=== PATIENT | female | born 1935 | race Caucasian/White ===

== ENCOUNTER 2017-04-23 12:15 | Emergency (ER) | payer MEDICARE ==
[~2017-04-23] VITALS: Ht 170.2 cm; Wt 52.0 kg
[~2017-04-23 12:15] MED LIST: ASPI81TA81; ATOR20TA15 PO; BACT800T5 PO; CLOP75TA PO; COMB0.2S EACH EYE; FISH1000; IRON18TA2 PO; LANS30CA PO; MEMA21CA PO; MULT1TAB84 PO; SYNT88TA PO; VALS1TAB64 PO
[2017-04-23 12:25] VITALS: BP 96/47; PULSE 57; RESP 18; TEMP 96; O2SAT 97
[2017-04-23] MEDS ORDERED: MULTTAB67 PO (12:53)
[2017-04-23] MEDS ORDERED: FERR324T8 PO (12:53)
[2017-04-23] MEDS ORDERED: METO-426 PO (12:53)
[2017-04-23] MEDS ORDERED: LEVO.1 PO (12:53)
[2017-04-23] MEDS ORDERED: NAME10TA PO (12:53)
--- NOTE | 2017-04-23 13:00 | PD ---
HPI Chief Complaint: General Weakness Time Seen by Provider: 12:36 Travel History International Travel<30 days: No Contact w/Intl Traveler<30days: No Traveled to known affect area: No History of Present Illness HPI 81yo F with PMH of alzheimer's disease was brought in today because he noticed that she seemed more fatigue this week. Also noticed more coughing. Pt states she feels dizzy at times but not right now. Denies any fever, chest pain, sob, n/v, abdominal pain, focal weakness or numbness. Pt follows with Dr. Mesa. Denies any fall. PFSH Past Medical History Hx Anticoagulant Therapy: Yes Alzheimer's Disease: Yes Cancer: No Cardiovascular Problems: Yes High Cholesterol: Yes Cerebrovascular Accident: Yes Coronary Artery Disease: Yes Diabetes: No Diminished Hearing: No Endocrine: No Gastrointestinal Disorders: Yes GERD: Yes Genitourinary: Yes Hepatitis: No Hiatal Hernia: Yes Hypertension: Yes Immune Disorder: No Medical other: Yes (LOWER BACK PAIN) Musculoskeletal: Yes (ARTHRITIS) Neurologic: No Psychiatric: No Reproductive: No Respiratory: No Immunizations Current: Yes Thyroid Disease: Yes Tetanus Vaccination: > 5 Years Influenza Vaccination: Yes ?: Not Menopausal: Yes Past Surgical History Abdominal Surgery: Yes (APPENDECTOMY, GALLBLADDER REMOVED) AICD: No Appendectomy: Yes (AGE 8) Cardiac Surgery: Yes (OPEN HEART) Cholecystectomy: Yes Coronary Artery Bypass Graft: Yes (X5) Ear Surgery: No Endocrine Surgery: No Eye Surgery: Yes (CATARACTS REMOVED) Genitourinary Surgery: No Gynecologic Surgery: No Joint Replacement: No Oral Surgery: No Pacemaker: No Thoracic Surgery: Yes Other Surgery: Yes (THYROID) Social History Alcohol Use: No Tobacco Use: No Substance Use: No Allergies-Medications (Allergen,Severity, Reaction): Coded Allergies: No Known Allergies (Unverified , 04/23/17) Reported Meds & Prescriptions Reported Meds & Active Scripts Active Reported Synthroid (Levothyroxine Sodium) 100 Mcg Tab 100 Mcg PO DAILY Metoprolol Tartrate 75 Mg Tab 80 Mg PO BID Ferrous Fumarate 324 Mg Tab 65 Mg PO DAILY Multiple Vitamin 1 Tab 1 Tab PO DAILY Namenda (Memantine) 10 Mg Tab 10 Mg PO DAILY Atorvastatin (Atorvastatin Calcium) 20 Mg Tab 20 Mg PO HS Aspir-81 (Aspirin) 81 Mg Tabdr Valsartan 80 Mg Tab 80 Mg PO DAILY Clopidogrel (Clopidogrel Bisulfate) 75 Mg Tab 75 Mg PO DAILY Lansoprazole 30 Mg Capdr 30 Mg PO DAILY Fish Oil ([place]-3 Fatty Acids) 1,000 Mg Cap Combigan Opth Drops (Brimonidine-Timolol Opth Drops) 0.2-0.5% Soln 1 Drop EACH EYE Q12HR Review of Systems Except as stated in HPI: all other systems reviewed are Neg Physical Exam Narrative GENERAL: 81yo F not in distress. SKIN: Focused skin assessment warm/dry. HEAD: Atraumatic. Normocephalic. EYES: Pupils equal and round at 3mm bilaterally. EOMI. No scleral icterus. No injection or drainage. ENT: No nasal bleeding or discharge. Mucous membranes pink and moist. NECK: Trachea midline. No JVD. CARDIOVASCULAR: Regular rate and rhythm. No murmur appreciated. RESPIRATORY: No accessory muscle use. Clear to auscultation. Breath sounds equal bilaterally. GASTROINTESTINAL: Abdomen soft, non-tender, nondistended. No rebound tenderness or guarding. MUSCULOSKELETAL: No obvious deformities. No clubbing. No cyanosis. No edema. NEUROLOGICAL: Awake and alert. No obvious cranial nerve deficits. Motor grossly within normal limits. Normal speech. AAOx1, baseline mental status. Data Data Last Documented VS Vital Signs Date Time Temp Pulse Resp B/P Pulse Ox O2 Delivery O2 Flow Rate FiO2 04/23/17 14:29 54 16 153/63 93 Room Air 04/23/17 12:25 96.0 Orders Complete Blood Count With Diff (04/23/17 12:56) Comprehensive Metabolic Panel (04/23/17 12:56) Troponin I (04/23/17 12:56) Electrocardiogram (04/23/17 ) Chest, Single Ap (04/23/17 ) Urinalysis - C+S If Indicated (04/23/17 12:56) Benefits Counselor / Telemetry AMEE.Q8H (04/23/17 12:56) Cath For Specimen (04/23/17 14:18) Sodium Chlorid 0.9% 500 Ml Inj (Ns 500 M (04/23/17 14:30) Labs Laboratory Tests Test 04/23/17 13:00 White Blood Count 7.1 TH/MM3 Red Blood Count 3.20 MIL/MM3 Hemoglobin 9.8 GM/DL Hematocrit 29.9 % Mean Corpuscular Volume 93.5 FL Mean Corpuscular Hemoglobin 30.5 PG Mean Corpuscular Hemoglobin 32.6 % Concent Red Cell Distribution Width 12.5 % Platelet Count 203 TH/MM3 Mean Platelet Volume 8.3 FL Neutrophils (%) (Auto) 41.8 % Lymphocytes (%) (Auto) 45.3 % Monocytes (%) (Auto) 8.3 % Eosinophils (%) (Auto) 3.6 % Basophils (%) (Auto) 1.0 % Neutrophils # (Auto) 3.0 TH/MM3 Lymphocytes # (Auto) 3.1 TH/MM3 Monocytes # (Auto) 0.6 TH/MM3 Eosinophils # (Auto) 0.3 TH/MM3 Basophils # (Auto) 0.1 TH/MM3 CBC Comment DIFF FINAL Differential Comment Sodium Level 143 MEQ/L Potassium Level 5.0 MEQ/L Chloride Level 112 MEQ/L Carbon Dioxide Level 24.2 MEQ/L Anion Gap 7 MEQ/L Blood Urea Nitrogen 47 MG/DL Creatinine 2.10 MG/DL Estimat Glomerular Filtration 22 ML/MIN Rate Random Glucose 101 MG/DL Calcium Level 8.2 MG/DL Total Bilirubin 0.4 MG/DL Aspartate Amino Transf 20 U/L (AST/SGOT) Alanine Aminotransferase 17 U/L (ALT/SGPT) Alkaline Phosphatase 52 U/L Troponin I LESS THAN 0.02 NG/ML Total Protein 7.7 GM/DL Albumin 3.3 GM/DL [facility] Medical Decision Making Medical Screen Exam Complete: Yes Emergency Medical Condition: Yes Interpretation(s) EKG: Sinus bradycardia at 51bpm. Normal axis. 1st AV block. Mild ST depression. Differential Diagnosis Progressive dementia vs. UTI vs. dehydration vs. electrolyte abnormality vs. failure to thrive Narrative Course 81yo F with alzhiemers dementia brought here by because he was concern she may have pneumonia since she is coughing and also concern because she appears to get fatigue easier than normal. Pt is a thin, elderly female who is well appearing and has no complaint of chest pain, sob, or abdominal pain. Pt has no nausea, vomiting and tolerating PO. Labs reviewed, no leukocytosis. H/ H low at 9.8/29.9 but is only mildly decreased from 10.3/31.0. BUN/creatinine is mildly elevated at 47/2.10. This is only slightly increased from prior as well. CXR showed no acute pulmonary disease. I discussed case with pt's PMD Dr. Mesa who knows her well and agreed that pt can follow up with him as outpatient. Pt already has appointment next week. He asked that we fax over the CXR and lab work which I informed the charge nurse about. Straight cath was attempted for urine collection but unable to obtain specimen so pt was given water to rehydrate. Then pt urinated in the diaper. Pt has no abdominal pain or urinary complaints. Pt was also given NS 500cc IVF. At this point, do not feel that we need to cath pt again and they understand that I cant check if there is urine infection if we did not send the urine. Pt is well appearing. Return precautions given. Diagnosis Primary Impression: Fatigue Qualified Code: R53.82 - Chronic fatigue Patient Instructions: General Instructions Departure Forms: Tests/Procedures Additional Instructions: Please follow up with Dr. Mesa as outpatient. Return to the ED if symptoms worsen. Med/Other Pt SpecificInfo: No Change to Meds Disposition: 01 DISCHARGE HOME Condition: Stable JuarezMaci jeffersonto LEWIS Apr 23, 2017 13:00
[2017-04-23 13:12] LABS: BASOPHIL # 0.1 TH/MM3 (0-0.2); EOSINOPHIL # 0.3 TH/MM3 (0-0.4); EOSINOPHIL % 3.6 % (0.0-4.0); HEMATOCRIT 29.9 % (35.0-46.0); HEMO FLAGS DIFF FINAL; LYMPH % 45.3 % (9.0-44.0); LYMPHOCYTE # 3.1 TH/MM3 (1.0-4.8); MEAN CELL VOLUME 93.5 FL (80.0-100.0); MEAN CORPUSCULAR HEMOGLOBIN 30.5 PG (27.0-34.0); MEAN CORPUSCULAR HGB CONC 32.6 % (32.0-36.0); MONO % 8.3 % (0.0-8.0); NEUT % 41.8 % (16.0-70.0); PLATELET COUNT 203 TH/MM3 (150-450); RED CELL DISTRIBUTION WIDTH 12.5 % (11.6-17.2); WHITE BLOOD COUNT 7.1 TH/MM3 (4.0-11.0)
[2017-04-23 13:22] LABS: CHLORIDE 112 MEQ/L (98-107); SODIUM (NA) 143 MEQ/L (136-145)
[2017-04-23 13:25] LABS: ANION GAP 7 MEQ/L (5-15); BICARBONATE 24.2 MEQ/L (21.0-32.0); BLOOD UREA NITROGEN 47 MG/DL (7-18)
[2017-04-23 13:28] LABS: ALT (GPT) 17 U/L (10-53)
[2017-04-23 13:29] LABS: AST (GOT) 20 U/L (15-37); GLOMERULAR FILTRATION RATE 22 ML/MIN (>89)
[2017-04-23 13:30] LABS: TOTAL BILIRUBIN ADULT 0.4 MG/DL (0.2-1.0)
[2017-04-23 13:31] LABS: ALKALINE PHOSPHATASE 52 U/L (45-117)
--- NOTE | 2017-04-23 13:54 | RADRPT ---
EXAM DATE/TIME: 04/23/2017 13:29 [place] COMPARISON: No previous studies available for comparison. INDICATIONS : Weakness MEDICAL HISTORY : Cardiovascular disease SURGICAL HISTORY : CABG. ENCOUNTER: Initial ACUITY: 1 day PAIN SCORE: 2/10 LOCATION: Bilateral chest FINDINGS: Median sternotomy wires are noted status post cardiac surgery. The heart is normal. The pulmonary v ascular pattern is normal. The lungs are clear. CONCLUSION: No acute cardiopulmonary disease.. Dick Cazares MD on April 23, 2017 at 13:43 Board Certified Radiologist. This report was verified electronically.
[2017-04-23 14:29] VITALS: BP 153/63; PULSE 54; RESP 16; O2SAT 93
[2017-04-23] MEDS ORDERED: SODIUM CHLORID 0.9% 500 ML INJ 500 ML IV ONE (14:30)
--- NOTE | 2017-04-23 16:15 | EKG ---
Date Performed: 04/23/2017 Time Performed: 13:09:26 PTAGE: 81 years EKG: SINUS BRADYCARDIA WITH FIRST DEGREE AV BLOCK Nonspecific ST and T wave abnormalities ABNORM AL ECG No significant change from prior electrocardiogram. PREVIOUS TRACING : 07/30/2016 15.20 DOCTOR: Ricki Harrison Interpretating Date/Time 04/23/2017 16:13:24
== END 2017-04-23 15:29 | disposition home or self-care (01) ==
LOC: PHED 12:15
DX: R53.82 Chronic fatigue, unspecified (principal); R00.1 Bradycardia, unspecified
CPT/HCPCS: 71010; 80053; 84484; 85025; 93005; 96360; 99285; J7040

== ENCOUNTER 2017-05-26 12:57 | Observation (INO) | payer MEDICARE ==
[2017-05-26] VITALS (8 sets, daily range): BP systolic 88–164; BP diastolic 51–84; PULSE 58–71; RESP 14–20; TEMP 95.9–97.4; O2SAT 92–98
[~2017-05-26] VITALS: Ht 167.6 cm; Wt 51.1 kg
[~2017-05-26 12:57] MED LIST changes: -BACT800T5 PO; +FERR324T8 PO; -IRON18TA2 PO; +LEVO.1 PO; -MEMA21CA PO; +METO-426 PO; -MULT1TAB84 PO; +MULTTAB67 PO; +NAME10TA PO; -SYNT88TA PO
[2017-05-26] MEDS ORDERED: SODIUM CHLOR 0.9% 1000 ML INJ 1,000 ML IV SCH (13:34)
--- NOTE | 2017-05-26 13:42 | PD ---
HPI Chief Complaint: General Weakness Time Seen by Provider: 13:12 Travel History International Travel<30 days: No Contact w/Intl Traveler<30days: No Traveled to known affect area: No History of Present Illness HPI The patient is a 81-year-old female who presents to the emergency department for generalized weakness. The patient does have a history of early onset dementia, lives with her up 61 years. The states over the last week the patient has had some increasing generalized weakness with decreased oral intake. The patient does have a history of increasing kidney function, stage IV kidney disease, and is scheduled for an outpatient ultrasound and follow-up with a liability claims representative. The states the patient has had increasing weakness over the last week, denies any fever, vomiting, diarrhea, or complaints of abdominal pain. The patient denies any chest pain or shortness of breath at rest, however, does note some lightheadedness and shortness of breath with exertion. The patient's symptoms are moderate, worse with activity, slightly alleviated at rest. The patient does have a history of chronic left lower extremity edema secondary to previous CABG and vein harvesting. The states there is no acute changes in the swelling of the left lower extremity. PFSH Past Medical History Hx Anticoagulant Therapy: Yes Alzheimer's Disease: Yes Cancer: No Cardiovascular Problems: Yes (CABG x5) High Cholesterol: Yes Cerebrovascular Accident: Yes Coronary Artery Disease: Yes Diabetes: No Diminished Hearing: No Endocrine: No Gastrointestinal Disorders: Yes GERD: Yes Genitourinary: Yes Hepatitis: No Hiatal Hernia: Yes Hypertension: Yes Immune Disorder: No Musculoskeletal: Yes (ARTHRITIS) Neurologic: No Psychiatric: No Reproductive: No Respiratory: No Immunizations Current: Yes Thyroid Disease: Yes ?: Not Menopausal: Yes Past Surgical History Abdominal Surgery: Yes (APPENDECTOMY, GALLBLADDER REMOVED) AICD: No Appendectomy: Yes (AGE 8) Cardiac Surgery: Yes (OPEN HEART) Cholecystectomy: Yes Coronary Artery Bypass Graft: Yes (X5) Ear Surgery: No Endocrine Surgery: No Eye Surgery: Yes (CATARACTS REMOVED) Genitourinary Surgery: No Gynecologic Surgery: No Joint Replacement: No Oral Surgery: No Pacemaker: No Thoracic Surgery: Yes Other Surgery: Yes (THYROID) Social History Alcohol Use: No Tobacco Use: No Substance Use: No Allergies-Medications (Allergen,Severity, Reaction): Coded Allergies: No Known Allergies (Unverified , 05/26/17) Reported Meds & Prescriptions Reported Meds & Active Scripts Active Reported Synthroid (Levothyroxine Sodium) 100 Mcg Tab 100 Mcg PO DAILY Metoprolol Tartrate 75 Mg Tab 80 Mg PO BID Ferrous Fumarate 324 Mg Tab 65 Mg PO DAILY Multiple Vitamin 1 Tab 1 Tab PO DAILY Namenda (Memantine) 10 Mg Tab 10 Mg PO DAILY Atorvastatin (Atorvastatin Calcium) 20 Mg Tab 20 Mg PO HS Aspir-81 (Aspirin) 81 Mg Tabdr Valsartan 80 Mg Tab 80 Mg PO DAILY Clopidogrel (Clopidogrel Bisulfate) 75 Mg Tab 75 Mg PO DAILY Lansoprazole 30 Mg Capdr 30 Mg PO DAILY Fish Oil ([place]-3 Fatty Acids) 1,000 Mg Cap Combigan Opth Drops (Brimonidine-Timolol Opth Drops) 0.2-0.5% Soln 1 Drop EACH EYE Q12HR Review of Systems Except as stated in HPI: all other systems reviewed are Neg General / Constitutional: No: Fever HENT: Positive: Lightheadedness Cardiovascular: Positive: Dyspnea on exertion, No: Chest Pain or Discomfort Respiratory: No: Shortness of Breath Gastrointestinal: Positive: Loss of Appetite, No: Nausea, Vomiting, Abdominal Pain Genitourinary: Positive: Other (stage IV kidney disease per the 's report), No: Dysuria Musculoskeletal: Positive: Weakness, Edema (chronic left lower extremity edema) Neurologic: Positive: Weakness Physical Exam Narrative GENERAL: Awake, alert, very pleasant 81-year-old female who appears her stated age and is in no acute respiratory distress. SKIN: Focused skin assessment warm/dry. Pale complexion. HEAD: Atraumatic. Normocephalic. EYES: Pupils equal and round. No scleral icterus. No injection or drainage. Pallor noted of the lower conjunctiva. ENT: No nasal bleeding or discharge. Slightly dry mucous membranes. NECK: Trachea midline. No JVD. CARDIOVASCULAR: Regular rate and rhythm. No murmur appreciated. Heart rate in the 60s. RESPIRATORY: No accessory muscle use. Clear to auscultation. Breath sounds equal bilaterally. GASTROINTESTINAL: Abdomen soft, non-tender, nondistended. Well-healed abdominal scar. No rebound tenderness. Rectal: The exam was performed in the presence of a female nurse. No gross blood, grossly guaiac positive. MUSCULOSKELETAL: No obvious deformities. No clubbing. No cyanosis. Left lower extremity edema with vein harvesting scar noted medial aspect. NEUROLOGICAL: Awake and alert. No obvious cranial nerve deficits. Motor grossly within normal limits. Normal speech. Follows commands. PSYCHIATRIC: Appropriate mood and affect; insight and judgment normal. Data Data Last Documented VS Vital Signs Date Time Temp Pulse Resp B/P (MAP) Pulse Ox O2 Delivery O2 Flow Rate FiO2 05/26/17 14:16 59 18 113/51 (71) 98 Room Air 2.00 05/26/17 13:08 97.4 Orders Orders Complete Blood Count With Diff (05/26/17 13:34) Comprehensive Metabolic Panel (05/26/17 13:34) Prothrombin Time / Inr (Pt) (05/26/17 13:34) Act Partial Throm Time (Ptt) (05/26/17 13:34) Urinalysis - C+S If Indicated (05/26/17 13:34) Type And Screen (05/26/17 13:34) Ecg Monitoring (05/26/17 13:34) Iv Access Insert/Monitor (05/26/17 13:34) Oximetry (05/26/17 13:34) Sodium Chlor 0.9% 1000 Ml Inj (Ns 1000 M (05/26/17 13:34) Sodium Chloride 0.9% Flush (Ns Flush) (05/26/17 13:45) Electrocardiogram (05/26/17 ) Creatine Kinase (Cpk) (05/26/17 13:34) Troponin I (05/26/17 13:34) Cath For Specimen (05/26/17 14:19) Urine Culture (05/26/17 14:25) Labs Laboratory Tests Test 05/26/17 13:40 05/26/17 14:25 White Blood Count 5.9 TH/MM3 Red Blood Count 3.03 MIL/MM3 Hemoglobin 9.3 GM/DL Hematocrit 28.1 % Mean Corpuscular Volume 92.5 FL Mean Corpuscular Hemoglobin 30.6 PG Mean Corpuscular Hemoglobin Concent 33.1 % Red Cell Distribution Width 12.7 % Platelet Count 257 TH/MM3 Mean Platelet Volume 7.6 FL Neutrophils (%) (Auto) 48.3 % Lymphocytes (%) (Auto) 36.4 % Monocytes (%) (Auto) 9.6 % Eosinophils (%) (Auto) 4.4 % Basophils (%) (Auto) 1.3 % Neutrophils # (Auto) 2.8 TH/MM3 Lymphocytes # (Auto) 2.1 TH/MM3 Monocytes # (Auto) 0.6 TH/MM3 Eosinophils # (Auto) 0.3 TH/MM3 Basophils # (Auto) 0.1 TH/MM3 CBC Comment DIFF FINAL Differential Comment Prothrombin Time 11.1 SEC Prothromb Time International Ratio 1.0 RATIO Activated Partial Thromboplast Time 21.5 SEC Blood Urea Nitrogen 30 MG/DL Creatinine 1.80 MG/DL Random Glucose 104 MG/DL Total Protein 7.2 GM/DL Albumin 3.1 GM/DL Calcium Level 8.2 MG/DL Alkaline Phosphatase 50 U/L Aspartate Amino Transf (AST/SGOT) 20 U/L Alanine Aminotransferase (ALT/SGPT) 14 U/L Total Bilirubin 0.3 MG/DL Sodium Level 140 MEQ/L Potassium Level 4.3 MEQ/L Chloride Level 109 MEQ/L Carbon Dioxide Level 25.3 MEQ/L Anion Gap 6 MEQ/L Estimat Glomerular Filtration Rate 27 ML/MIN Total Creatine Kinase 51 U/L Troponin I LESS THAN 0.02 NG/ML Urine Collection Type CATH Urine Color YELLOW Urine Turbidity MOD Urine pH 5.5 Urine Specific [place] 1.018 Urine Protein 30 mg/dL Urine Glucose (UA) NEG mg/dL Urine Ketones TRACE mg/dL Urine Occult Blood MOD Urine Nitrite POS Urine Bilirubin NEG Urine Leukocyte Esterase LARGE Urine RBC 15-19 /hpf Urine WBC INNUM /hpf Urine WBC Clumps MANY Urine Bacteria MANY /hpf Microscopic Urinalysis Comment CATH-CULTURE IND Urine Collection Time 14:25 MDM Medical Decision Making Medical Screen Exam Complete: Yes Emergency Medical Condition: Yes Medical Record Reviewed: Yes Interpretation(s) EKG reveals sinus bradycardia with a heart rate of 58. Borderline first-degree AV block. Nonspecific ST-T wave changes. Laboratory Tests Test 05/26/17 13:40 05/26/17 14:25 White Blood Count 5.9 TH/MM3 Red Blood Count 3.03 MIL/MM3 Hemoglobin 9.3 GM/DL Hematocrit 28.1 % Mean Corpuscular Volume 92.5 FL Mean Corpuscular Hemoglobin 30.6 PG Mean Corpuscular Hemoglobin Concent 33.1 % Red Cell Distribution Width 12.7 % Platelet Count 257 TH/MM3 Mean Platelet Volume 7.6 FL Neutrophils (%) (Auto) 48.3 % Lymphocytes (%) (Auto) 36.4 % Monocytes (%) (Auto) 9.6 % Eosinophils (%) (Auto) 4.4 % Basophils (%) (Auto) 1.3 % Neutrophils # (Auto) 2.8 TH/MM3 Lymphocytes # (Auto) 2.1 TH/MM3 Monocytes # (Auto) 0.6 TH/MM3 Eosinophils # (Auto) 0.3 TH/MM3 Basophils # (Auto) 0.1 TH/MM3 CBC Comment DIFF FINAL Differential Comment Prothrombin Time 11.1 SEC Prothromb Time International Ratio 1.0 RATIO Activated Partial Thromboplast Time 21.5 SEC Blood Urea Nitrogen 30 MG/DL Creatinine 1.80 MG/DL Random Glucose 104 MG/DL Total Protein 7.2 GM/DL Albumin 3.1 GM/DL Calcium Level 8.2 MG/DL Alkaline Phosphatase 50 U/L Aspartate Amino Transf (AST/SGOT) 20 U/L Alanine Aminotransferase (ALT/SGPT) 14 U/L Total Bilirubin 0.3 MG/DL Sodium Level 140 MEQ/L Potassium Level 4.3 MEQ/L Chloride Level 109 MEQ/L Carbon Dioxide Level 25.3 MEQ/L Anion Gap 6 MEQ/L Estimat Glomerular Filtration Rate 27 ML/MIN Total Creatine Kinase 51 U/L Troponin I LESS THAN 0.02 NG/ML Urine Collection Type CATH Urine Color YELLOW Urine Turbidity MOD Urine pH 5.5 Urine Specific [place] 1.018 Urine Protein 30 mg/dL Urine Glucose (UA) NEG mg/dL Urine Ketones TRACE mg/dL Urine Occult Blood MOD Urine Nitrite POS Urine Bilirubin NEG Urine Leukocyte Esterase LARGE Urine RBC 15-19 /hpf Urine WBC INNUM /hpf Urine WBC Clumps MANY Urine Bacteria MANY /hpf Microscopic Urinalysis Comment CATH-CULTURE IND Urine Collection Time 14:25 Differential Diagnosis Differential diagnosis includes symptomatic anemia, chronic kidney disease, dehydration, malnutrition, dementia, UTI, pneumonia, subdural hemorrhage, hyponatremia. Narrative Course IV was established, labs are drawn and sent, and the patient was placed on cardiac telemetry monitoring and continuous pulse oximetry monitoring. EKG was ordered and interpreted. Rectal exam reveals no gross blood but is grossly guaiac positive. Therefore, CBC and type and screen were sent to lab. Chest x- ray was obtained. UA was ordered. IV fluids were started. The patient's creatinine is 1.8. Hemoglobin is 9.3, however, patient appears dehydrated and hemoconcentrated. Catheter UA revealed no urine in the bladder, therefore, patient was administered an IV fluid bolus. The patient has a low hemoglobin, however, her physical examination reveals pallor to lower conjunctiva and pale complexion with positive rectal exam for guaiac positive stool. I believe the patient is hemoconcentrated with underlying acute kidney injury and dehydration. Therefore, patient will be 23 hour observation for rehydration and evaluation of her hemoglobin as well as the GI bleed. The patient's primary physician is Dr. Bolivar, therefore, [facility] were paged for 23 hour observation. After IV fluids patient's UA came back, consistent with UTI. Therefore, the patient was administered Rocephin 1 g intravenously. I discussed the patient with Dr. Rahman who agrees with 23 hour observation. [facility] Point of Care Internal Pos. & Neg. Controls: Passed Fecal Specimen Occult Blood: Positive Physician Communication Physician Communication [facility] were paged for 23 hour observation. I discussed the patient with Dr. Rahman who agrees with 23 hour observation. Diagnosis Primary Impression: GI bleed Qualified Codes: K92.2 - Gastrointestinal hemorrhage, unspecified Additional Impressions: Dehydration Chronic renal insufficiency Qualified Codes: N18.4 - Chronic kidney disease, stage 4 (severe) Anemia Qualified Codes: D64.9 - Anemia, unspecified UTI (urinary tract infection) Qualified Codes: N39.0 - Urinary tract infection, site not specified Admitting Information Admitting Physician Requests: Observation Condition: Stable Jose Styles MD May 26, 2017 13:42
[2017-05-26] MEDS ORDERED: SODIUM CHLORIDE 0.9% FLUSH 10 ML FLUSH IVF PRN (13:45)
[2017-05-26 13:52] LABS: AUTOMATED NEUTROPHIL # 2.8 TH/MM3 (1.8-7.7); BASOPHIL # 0.1 TH/MM3 (0-0.2); BASOPHIL % 1.3 % (0.0-2.0); EOSINOPHIL # 0.3 TH/MM3 (0-0.4); EOSINOPHIL % 4.4 % (0.0-4.0); HEMATOCRIT 28.1 % (35.0-46.0); HEMO FLAGS DIFF FINAL; LYMPH % 36.4 % (9.0-44.0); LYMPHOCYTE # 2.1 TH/MM3 (1.0-4.8); MEAN CELL VOLUME 92.5 FL (80.0-100.0); MEAN CORPUSCULAR HEMOGLOBIN 30.6 PG (27.0-34.0); MEAN CORPUSCULAR HGB CONC 33.1 % (32.0-36.0); MONO % 9.6 % (0.0-8.0); NEUT % 48.3 % (16.0-70.0); PLATELET COUNT 257 TH/MM3 (150-450); RED BLOOD COUNT 3.03 MIL/MM3 (4.00-5.30); RED CELL DISTRIBUTION WIDTH 12.7 % (11.6-17.2); WHITE BLOOD COUNT 5.9 TH/MM3 (4.0-11.0)
[2017-05-26 14:01] LABS: CHLORIDE 109 MEQ/L (98-107); POTASSIUM 4.3 MEQ/L (3.5-5.1); SODIUM (NA) 140 MEQ/L (136-145)
[2017-05-26 14:05] LABS: ANION GAP 6 MEQ/L (5-15); BICARBONATE 25.3 MEQ/L (21.0-32.0); BLOOD UREA NITROGEN 30 MG/DL (7-18)
[2017-05-26 14:08] LABS: ALT (GPT) 14 U/L (10-53); AST (GOT) 20 U/L (15-37); GLOMERULAR FILTRATION RATE 27 ML/MIN (>89)
[2017-05-26 14:09] LABS: TOTAL BILIRUBIN ADULT 0.3 MG/DL (0.2-1.0)
[2017-05-26 14:11] LABS: ALKALINE PHOSPHATASE 50 U/L (45-117)
[2017-05-26 14:29] LABS: APTT (PATIENT) 21.5 SEC (24.3-30.1); PROTHROMBIN TIME - PATIENT 11.1 SEC (9.8-11.6)
[2017-05-26 14:33] LABS: BLOOD, URINE MOD (NEG); GLUCOSE,URINE NEG (NEG); KETONE, URINE TRACE mg/dL (NEG); NITRITE,URINE POS (NEG); PH, URINE 5.5 (5.0-8.5)
[2017-05-26 14:34] LABS: CREATINE KINASE 51 U/L (26-192)
[2017-05-26 14:38] LABS: URINE COLOR YELLOW (YELLW/STRAW)
[2017-05-26 14:39] LABS: METHOD OF COLLECTION CATH; RBC, URINE 15-19 /hpf (0-3); WBC, URINE INNUM /hpf (0-5)
[2017-05-26 14:40] LABS: BACTERIA, URINE MANY /hpf; COMMENT (UR) CATH-CULTURE IND; CULTURE IF INDICATED CATH CULTURE IND
[2017-05-26] MEDS ORDERED: MAGNESIUM HYDROXIDE SUSP 30 ML CUP PO PRN (14:45)
[2017-05-26] MEDS ORDERED: cefTRIAXone INJ 1,000 MG in SODIUM CHLORIDE 0.9% INJ 100 ML IV ONE (14:45)
[2017-05-26] MEDS ORDERED: NALOXONE HCL 0.4 MG/ML AMP IV PRN (14:45)
[2017-05-26] MEDS ORDERED: LACTULOSE SYRUP 20 GM/30 ML CUP PO PRN (14:45)
[2017-05-26] MEDS ORDERED: SENNOSIDES 8.6 MG TAB PO PRN (14:45)
[2017-05-26] MEDS ORDERED: BISACODYL 10 MG SUPP RECTAL PRN (14:45)
[2017-05-26] MEDS ORDERED: SODIUM CHLORIDE 0.9% FLUSH 10 ML FLUSH IV FLUSH PRN (14:45)
[2017-05-26] MEDS ORDERED: ONDANSETRON HCL 4 MG/2 ML VIAL IVP PRN (14:45)
[2017-05-26] MEDS: SODIUM CHLOR 0.9% 1000 ML INJ 1,000 ML IV SCH (15:18)
[2017-05-26] MEDS ORDERED: SODIUM CHLOR 0.9% 1000 ML INJ 1,000 ML IV ONE (15:30)
--- NOTE | 2017-05-26 18:09 | HHI.HP ---
HPI Service [facility] Primary Care Physician Sami Bolivar MD Admission Diagnosis UTI, GI bleed, anemia, dehydration, CKD Diagnoses: Chief Complaint: Generalized weakness Travel History International Travel<30 Days: No Contact w/Intl Traveler <30 Da: No Traveled to Known Affected Are: No History of Present Illness Ms. Cadena is a pleasant 81-year-old female with a history of coronary artery disease, dementia who presents to the emergency department today due to generalized weakness. At the time of this interview patient is in the room by herself and her has gone home. Difficult to obtain proper history. However chart review indicates that patient has been experiencing generalized weakness with decreased oral intake over the past one week. She did not have any nausea, vomiting, diarrhea, abdominal pain or fever. Patient denies any chest pain or shortness of breath. She denies any changes in bowel or bladder habits. On arrival temperature 97.4F, pulse 62 respirations 14 blood pressure 88/52, pulse oximetry 97% on room air. Blood pressure subsequently improved to 105/52. CBC largely unremarkable except for hemoglobin 9.3 and hematocrit 28.1. Chemistry panel shows sodium 140 potassium 4.3 creatinine 1.80 GFR 27. Urinalysis shows nitrite positive, large leukocyte esterase, innumerable WBCs. Review of Systems Except as stated in HPI: all other systems reviewed are Neg Past Family Social History Past Medical History Coronary artery disease, hypertension, dementia, iron deficiency anemia, hypothyroidism Past Surgical History CABG 5, appendectomy, cholecystectomy, cataract surgery Reported Medications Synthroid (Levothyroxine Sodium) 100 Mcg Tab 100 Mcg PO DAILY Metoprolol Tartrate 75 Mg Tab 80 Mg PO BID Ferrous Fumarate 324 Mg Tab 65 Mg PO DAILY Multiple Vitamin 1 Tab 1 Tab PO DAILY Namenda (Memantine) 10 Mg Tab 10 Mg PO DAILY Atorvastatin (Atorvastatin Calcium) 20 Mg Tab 20 Mg PO HS Aspir-81 (Aspirin) 81 Mg Tabdr Valsartan 80 Mg Tab 80 Mg PO DAILY Clopidogrel (Clopidogrel Bisulfate) 75 Mg Tab 75 Mg PO DAILY Lansoprazole 30 Mg Capdr 30 Mg PO DAILY Fish Oil ([place]-3 Fatty Acids) 1,000 Mg Cap Combigan Opth Drops (Brimonidine-Timolol Opth Drops) 0.2-0.5% Soln 1 Drop EACH EYE Q12HR Allergies: Coded Allergies: No Known Allergies (Unverified , 05/26/17) Family History Family history could not be obtained due to patient's clinical condition. Social History Patient denies any use of tobacco, alcohol, illicit drug use. Physical Exam Vital Signs Vital Signs Date Time Temp Pulse Resp B/P (MAP) Pulse Ox O2 Delivery O2 Flow Rate FiO2 05/26/17 17:03 97 21 05/26/17 16:39 95.9 65 16 155/64 (94) 95 05/26/17 16:11 05/26/17 15:42 71 18 153/67 (95) 98 Nasal Cannula 2.00 05/26/17 15:35 74 05/26/17 14:16 59 18 113/51 (71) 98 Room Air 2.00 05/26/17 13:50 98 Nasal Cannula 2.00 05/26/17 13:48 58 18 105/52 (69) 92 Room Air 05/26/17 13:08 97.4 62 14 88/52 (64) 97 Physical Exam GENERAL: This is a well-nourished, well-developed patient, in no apparent distress. Alert, oriented to self. She could not tell me the place or month. Knows the name of the current president Isidro Ravi. SKIN: No rashes, ecchymoses or lesions. Warm and dry. HEAD: Atraumatic. Normocephalic. No temporal or scalp tenderness. EYES: Pupils equal round and reactive. No injection or drainage. ENT: Nose without bleeding, purulent drainage or septal hematoma. Airway patent. NECK: Trachea midline. No lymphadenopathy. Supple, nontender, no meningeal signs. CARDIOVASCULAR: Regular rate and rhythm without murmurs, gallops, or rubs. No JVD. RESPIRATORY: Clear to auscultation. Breath sounds equal bilaterally. No wheezes , rales, or rhonchi. GASTROINTESTINAL: Abdomen soft, non-tender, nondistended. No guarding. MUSCULOSKELETAL: Extremities without clubbing, cyanosis, or edema. NEUROLOGICAL: Awake and alert. Cranial nerves II through XII intact. No focal neurological deficits. Difficult to understand speech. Laboratory Laboratory Tests Test 05/26/17 13:40 05/26/17 14:25 White Blood Count 5.9 Red Blood Count 3.03 Hemoglobin 9.3 Hematocrit 28.1 Mean Corpuscular Volume 92.5 Mean Corpuscular Hemoglobin 30.6 Mean Corpuscular Hemoglobin Concent 33.1 Red Cell Distribution Width 12.7 Platelet Count 257 Mean Platelet Volume 7.6 Neutrophils (%) (Auto) 48.3 Lymphocytes (%) (Auto) 36.4 Monocytes (%) (Auto) 9.6 Eosinophils (%) (Auto) 4.4 Basophils (%) (Auto) 1.3 Neutrophils # (Auto) 2.8 Lymphocytes # (Auto) 2.1 Monocytes # (Auto) 0.6 Eosinophils # (Auto) 0.3 Basophils # (Auto) 0.1 CBC Comment DIFF FINAL Differential Comment Prothrombin Time 11.1 Prothromb Time International Ratio 1.0 Activated Partial Thromboplast Time 21.5 Blood Urea Nitrogen 30 Creatinine 1.80 Random Glucose 104 Total Protein 7.2 Albumin 3.1 Calcium Level 8.2 Alkaline Phosphatase 50 Aspartate Amino Transf (AST/SGOT) 20 Alanine Aminotransferase (ALT/SGPT) 14 Total Bilirubin 0.3 Sodium Level 140 Potassium Level 4.3 Chloride Level 109 Carbon Dioxide Level 25.3 Anion Gap 6 Estimat Glomerular Filtration Rate 27 Total Creatine Kinase 51 Troponin I LESS THAN 0.02 Urine Collection Type CATH Urine Color YELLOW Urine Turbidity MOD Urine pH 5.5 Urine Specific [place] 1.018 Urine Protein 30 Urine Glucose (UA) NEG Urine Ketones TRACE Urine Occult Blood MOD Urine Nitrite POS Urine Bilirubin NEG Urine Leukocyte Esterase LARGE Urine RBC 15-19 Urine WBC INNUM Urine WBC Clumps MANY Urine Bacteria MANY Microscopic Urinalysis Comment CATH-CULTURE IND Urine Collection Time 14:25 Date/Time Source Procedure Growth Status 05/26/17 14:25 Urine Catheterized Urine Urine Culture Pending Received Result Diagram: 05/26/17 1340 05/26/17 1340 Caprini VTE Risk Assessment Caprini VTE Risk Assessment: Mod/High Risk (score >= 2) Caprini Risk Assessment Model Point Value = 1 Point Value = 2 Point Value = 3 Point Value = 5 Age 41-60 Minor surgery BMI > 25 kg/m2 Swollen legs Varicose veins or History of unexplained or recurrent spontaneous Oral contraceptives or hormone replacement Sepsis (< 1 month) Serious lung disease, including pneumonia (< 1 month) Abnormal pulmonary function Acute myocardial infarction Congestive heart failure (< 1 month) History of inflammatory bowel disease Medical patient at bed rest Age 61-74 Arthroscopic surgery Major open surgery (> 45 min) Laparoscopic surgery (> 45 min) Malignancy Confined to bed (> 72 hours) Immobilizing plaster cast Central venous access Age >= 75 History of VTE Family history of VTE Factor V Leiden Prothrombin [id number] Lupus anticoagulant Anticardiolipin antibodies Elevated serum homocysteine Heparin-induced thrombocytopenia Other congenital or acquired thrombophilia Stroke (< 1 month) Elective arthroplasty Hip, pelvis, or leg fracture Acute spinal cord injury (< 1 month) Prophylaxis Regimen Total Risk Factor Score Risk Level Prophylaxis Regimen 0-1 Low Early ambulation 2 Moderate Order ONE of the following: *Sequential Compression Device (SCD) *Heparin 5000 units SQ BID 3-4 Higher Order ONE of the following medications: *Heparin 5000 units SQ TID *Enoxaparin/Lovenox 40 mg SQ daily (WT < 150 kg, CrCl > 30 mL/min) *Enoxaparin/Lovenox 30 mg SQ daily (WT < 150 kg, CrCl > 10-29 mL/min) *Enoxaparin/Lovenox 30 mg SQ BID (WT < 150 kg, CrCl > 30 mL/min) AND/OR *Sequential Compression Device (SCD) 5 or more Highest Order ONE of the following medications: *Heparin 5000 units SQ TID (Preferred with Epidurals) *Enoxaparin/Lovenox 40 mg SQ daily (WT < 150 kg, CrCl > 30 mL/min) *Enoxaparin/Lovenox 30 mg SQ daily (WT < 150 kg, CrCl > 10-29 mL/min) *Enoxaparin/Lovenox 30 mg SQ BID (WT < 150 kg, CrCl > 30 mL/min) AND *Sequential Compression Device (SCD) Assessment and Plan Problem List: (1) Generalized weakness ICD Code: R53.1 - Weakness (2) CKD (chronic kidney disease) stage 4, GFR 15-29 ml/min ICD Code: N18.4 - Chronic kidney disease, stage 4 (severe) (3) UTI (urinary tract infection) ICD Code: N39.0 - Urinary tract infection, site not specified Status: Acute Assessment and Plan Ms. Cadena is a pleasant 81-year-old female with a history of dementia, coronary artery disease who presents to the emergency department today due to generalized weakness that started about 7 days ago. ED workup indicated possible UTI. - Generalized weakness - Probable urinary tract infection - Patient's clinical symptoms likely related to UTI superimposed on her existing dementia - Follow urine culture and sensitivity. - We'll continue ceftriaxone 1 g daily. - Continue NS @75cc/hour. - Chronic kidney disease stage IV - Creatinine appears to be at her baseline 1.80. Patient is scheduled for outpatient follow-up. - Coronary artery disease - Hypertension - Continue aspirin 81 mg, Plavix 75 mg, atorvastatin 20 mg. - Patient takes metoprolol 75 mg twice a day and valsartan 80 mg daily. - Heart rate is in the 60s and 70s. We'll reduce metoprolol 12.5 mg twice a day. - We'll start amlodipine 2.5 mg daily. - After nephrology evaluation in the outpatient setting, if desired blood pressure medication can be switched to KEEGAN inhibitor or ARB which might be more useful in this patient with a history of CAD, CABG. - Hypothyroidism - GERD - Continue PPI and levothyroxine 100 g by mouth daily. Full code. Heparin subcutaneous. Problem Qualifiers (1) UTI (urinary tract infection): Qualified Codes: N39.0 - Urinary tract infection, site not specified Piero Rahman DO May 26, 2017 18:09
[2017-05-26] MEDS ORDERED: PILL SPLITTER OTHER PRN (18:15)
[2017-05-26] MEDS ORDERED: diphenhydrAMINE HCL 25 MG CAP PO PRN (20:15)
[2017-05-26] MEDS: SODIUM CHLORIDE 0.9% FLUSH 10 ML FLUSH IV FLUSH SCH (21:00)
[2017-05-26] MEDS: METOPROLOL TARTRATE 25 MG TAB PO SCH (21:02)
[2017-05-26] MEDS: TIMOLOL MALEATE 0.5% OPHT SOLN 5 ML BTL EACH EYE SCH (21:02)
[2017-05-26] MEDS: DOCUSATE SODIUM 50 MG/SENNA 8.6 MG TAB PO SCH (21:02)
[2017-05-26] MEDS: BRIMONIDINE TARTRATE 0.2% OPHT SOLN 5 ML BTL EACH EYE SCH (21:02)
[2017-05-26] MEDS: HEPARIN SODIUM - SQ 10,000 UNITS/ML VIAL SQ SCH (21:03)
[2017-05-26] MEDS: ATORVASTATIN 20 MG TAB PO SCH (21:03)
[2017-05-27] VITALS (8 sets, daily range): BP systolic 159–188; BP diastolic 69–91; PULSE 54–76; RESP 16–20; TEMP 96–98.3; O2SAT 95–99
[2017-05-27] MEDS ORDERED: cloNIDine HCL 0.1 MG TAB PO ONE (01:30)
[2017-05-27] MEDS: LEVOTHYROXINE SODIUM 100 MCG TAB PO SCH (05:28)
[2017-05-27] MEDS: SODIUM CHLOR 0.9% 1000 ML INJ 1,000 ML IV SCH ×2 (05:28→15:02)
[2017-05-27 08:17] LABS: BASOPHIL % 0.7 % (0.0-2.0); EOSINOPHIL # 0.4 TH/MM3 (0-0.4); EOSINOPHIL % 5.3 % (0.0-4.0); HEMATOCRIT 30.4 % (35.0-46.0); HEMO FLAGS DIFF FINAL; LYMPH % 39.8 % (9.0-44.0); LYMPHOCYTE # 2.7 TH/MM3 (1.0-4.8); MEAN CELL VOLUME 93.7 FL (80.0-100.0); MEAN CORPUSCULAR HEMOGLOBIN 29.1 PG (27.0-34.0); MONO % 10.5 % (0.0-8.0); NEUT % 43.7 % (16.0-70.0); PLATELET COUNT 259 TH/MM3 (150-450); RED BLOOD COUNT 3.24 MIL/MM3 (4.00-5.30); RED CELL DISTRIBUTION WIDTH 12.7 % (11.6-17.2); WHITE BLOOD COUNT 6.8 TH/MM3 (4.0-11.0)
[2017-05-27 08:28] LABS: POTASSIUM 3.7 MEQ/L (3.5-5.1)
[2017-05-27 08:32] LABS: BICARBONATE 25.6 MEQ/L (21.0-32.0)
[2017-05-27] MEDS: cefTRIAXone INJ 1,000 MG in SODIUM CHLORIDE 0.9% INJ 100 ML IV SCH (09:06)
[2017-05-27] MEDS: FERROUS FUMARATE 325 MG TAB (106 MG ELEMENTAL IRON) PO SCH (09:06)
[2017-05-27] MEDS: CLOPIDOGREL 75 MG TAB PO SCH (09:07)
[2017-05-27] MEDS: PANTOPRAZOLE SOD 40 MG DELAYED RELEASE TAB PO SCH (09:07)
[2017-05-27] MEDS: DOCUSATE SODIUM 50 MG/SENNA 8.6 MG TAB PO SCH ×2 (09:07→20:59)
[2017-05-27] MEDS: amLODIPine BESYLATE 5 MG TAB PO SCH (09:08)
[2017-05-27] MEDS: METOPROLOL TARTRATE 25 MG TAB PO SCH ×2 (09:08→20:58)
[2017-05-27] MEDS: MEMANTINE HCL 10 MG TAB PO SCH (09:08)
[2017-05-27] MEDS: TIMOLOL MALEATE 0.5% OPHT SOLN 5 ML BTL EACH EYE SCH ×2 (09:09→20:59)
[2017-05-27] MEDS: SODIUM CHLORIDE 0.9% FLUSH 10 ML FLUSH IV FLUSH SCH ×2 (09:09→21:00)
[2017-05-27] MEDS: BRIMONIDINE TARTRATE 0.2% OPHT SOLN 5 ML BTL EACH EYE SCH ×2 (09:09→20:59)
[2017-05-27] MEDS: HEPARIN SODIUM - SQ 10,000 UNITS/ML VIAL SQ SCH ×2 (09:10→20:59)
--- NOTE | 2017-05-27 14:03 | HHI.PR ---
Subjective Remarks Patient by herself, no at bedside. Patient herself says she has a headache, says she feels somewhat stronger, says she is willing to go to a rehabilitation facility if placement is warranted. Tolerating by mouth intake well, denies any dysuria currently. Discussed with nursing, says that the patient is forgetful Objective Vital Signs Date Time Temp Pulse Resp B/P (MAP) Pulse Ox O2 Delivery O2 Flow Rate FiO2 05/27/17 12:00 97.5 54 18 163/77 (105) 99 05/27/17 08:15 96 21 05/27/17 08:00 97.0 56 18 160/69 (99) 97 05/27/17 04:00 98.3 63 16 164/91 (115) 95 05/27/17 00:00 97.3 62 16 185/76 (112) 98 05/27/17 00:00 97.3 62 16 181/76 (111) 98 05/26/17 21:30 96 21 05/26/17 20:00 97.0 70 20 164/84 (110) 95 05/26/17 17:03 97 21 05/26/17 16:39 95.9 65 16 155/64 (94) 95 05/26/17 16:11 05/26/17 15:42 71 18 153/67 (95) 98 Nasal Cannula 2.00 05/26/17 15:35 74 05/26/17 14:16 59 18 113/51 (71) 98 Room Air 2.00 I/O 05/26/17 05/26/17 05/26/17 05/27/17 05/27/17 05/27/17 07:00 15:00 23:00 07:00 15:00 23:00 Intake Total 2400 ml 840 ml Balance 2400 ml 840 ml Intake Oral 240 ml IV Total 2400 ml 600 ml # Voids 6 # Bowel Movements 1 Result Diagram: 05/27/1745 05/27/17744 Objective Remarks GENERAL: Eating in bed, no acute distress CARDIOVASCULAR: Regular rate and rhythm without murmurs, gallops, or rubs. RESPIRATORY: Breath sounds equal and clear bilaterally. Unlabored breathing GASTROINTESTINAL: Abdomen soft, non-tender, nondistended. MUSCULOSKELETAL: No cyanosis, or edema. 4 out of 5 muscle strength in proximal shoulders and proximal lower extremities A/P Assessment and Plan Ms. Cadena is a pleasant 81-year-old female with a history of dementia, coronary artery disease who presents to the emergency department today due to generalized weakness that started about 7 days ago. ED workup indicated possible UTI. - Generalized weakness - Probable urinary tract infection - Patient's clinical symptoms likely related to UTI superimposed on her existing dementia - Follow urine culture and sensitivity. - We'll continue ceftriaxone 1 g daily. - Continue NS @75cc/hour. - PT and OT consults placed today for assessment for placement vs home vs oupt group home options if needed - Chronic kidney disease stage IV - monitor - Coronary artery disease + HTN - Continue aspirin 81 mg, Plavix 75 mg, atorvastatin 20 mg. - Patient takes metoprolol 75 mg twice a day and valsartan 80 mg daily at home. - reduced metoprolol 12.5 mg twice a day give borderline bradycardia - amlodipine 2.5 mg daily. - After nephrology evaluation in the outpatient setting, if desired blood pressure medication can be switched to KEEGAN inhibitor or ARB which might be more useful in this patient with a history of CAD, CABG. - Hypothyroidism - GERD - Continue PPI and levothyroxine 100 g by mouth daily. Full code. lovenox Discharge Planning pending UCx and sensitivities and rehab assessments Dylan Rosas MD May 27, 2017 14:03
--- NOTE | 2017-05-27 16:59 | EKG ---
Date Performed: 05/26/2017 Time Performed: 13:44:32 PTAGE: 81 years EKG: SINUS BRADYCARDIA WITH FIRST DEGREE AV BLOCK NONSPECIFIC ST & T-WAVE ABNORMALITY Since prev ious tracing, no significant change noted ABNORMAL ECG PREVIOUS TRACING : 04/23/2017 13.09 DOCTOR: Destinee Nelson Interpretating Date/Time 05/27/2017 16:58:55
[2017-05-27] MEDS: ATORVASTATIN 20 MG TAB PO SCH (20:58)
[2017-05-28] VITALS: BP 161/80; PULSE 66; RESP 20; TEMP 96.4; O2SAT 96
[2017-05-28 06:38] LABS: POTASSIUM 3.5 MEQ/L (3.5-5.1)
[2017-05-28 06:42] LABS: BICARBONATE 26.1 MEQ/L (21.0-32.0); MAGNESIUM 1.9 MG/DL (1.5-2.5)
[2017-05-28] MEDS: LEVOTHYROXINE SODIUM 100 MCG TAB PO SCH (06:59)
[2017-05-28 08:00] VITALS: BP 180/100; PULSE 92; RESP 20; TEMP 97; O2SAT 100
[2017-05-28] MEDS: DOCUSATE SODIUM 50 MG/SENNA 8.6 MG TAB PO SCH ×2 (08:40→20:09)
[2017-05-28] MEDS: PANTOPRAZOLE SOD 40 MG DELAYED RELEASE TAB PO SCH (08:40)
[2017-05-28] MEDS: amLODIPine BESYLATE 5 MG TAB PO SCH ×2 (08:40→12:46)
[2017-05-28] MEDS: MEMANTINE HCL 10 MG TAB PO SCH (08:41)
[2017-05-28] MEDS: CLOPIDOGREL 75 MG TAB PO SCH (08:41)
[2017-05-28] MEDS: FERROUS FUMARATE 325 MG TAB (106 MG ELEMENTAL IRON) PO SCH (08:41)
[2017-05-28] MEDS: METOPROLOL TARTRATE 25 MG TAB PO SCH ×3 (08:41→20:09)
[2017-05-28] MEDS: SODIUM CHLORIDE 0.9% FLUSH 10 ML FLUSH IV FLUSH SCH ×2 (08:42→20:09)
[2017-05-28] MEDS: BRIMONIDINE TARTRATE 0.2% OPHT SOLN 5 ML BTL EACH EYE SCH ×2 (08:42→20:07)
[2017-05-28] MEDS: TIMOLOL MALEATE 0.5% OPHT SOLN 5 ML BTL EACH EYE SCH ×2 (08:42→20:09)
[2017-05-28] MEDS: cefTRIAXone INJ 1,000 MG in SODIUM CHLORIDE 0.9% INJ 100 ML IV SCH (08:43)
[2017-05-28] MEDS: SODIUM CHLOR 0.9% 1000 ML INJ 1,000 ML IV SCH ×2 (08:43→12:00)
[2017-05-28] MEDS: HEPARIN SODIUM - SQ 10,000 UNITS/ML VIAL SQ SCH ×2 (08:46→20:09)
[2017-05-28] MEDS ORDERED: METO25TA3 PO (11:54)
[2017-05-28] MEDS ORDERED: AMLO5 PO (11:54)
[2017-05-28] MEDS ORDERED: CIPR-9 PO (11:57)
--- NOTE | 2017-05-28 11:57 | HHI.DCPOC ---
Discharge Care Plan Diagnosis: (1) UTI (urinary tract infection) (2) Generalized weakness Goals to Promote Your Health * To prevent worsening of your condition and complications * To maintain your health at the optimal level Directions to Meet Your Goals Take your medications as prescribed Follow your dietary instruction Follow activity as directed Keep your appointments as scheduled Take your immunizations and boosters as scheduled If your symptoms worsen call your PCP, if no PCP go to Urgent Care Center or Emergency Room Smoking is Dangerous to Your Health. Avoid second hand smoke Call the 24-hour hour crisis hotline for domestic abuse at Anish Banegas May 28, 2017 11:57
[2017-05-28 12:00] VITALS: BP 167/89; PULSE 74; RESP 20; TEMP 97.8; O2SAT 97
--- NOTE | 2017-05-28 12:01 | HHI.DS ---
Discharge Summary Admission Date May 26, 2017 at 14:45 Discharge Date: May 28, 2017 Admitting Diagnosis UTI, GI bleed, anemia, dehydration, CKD (1) Generalized weakness ICD Code: R53.1 - Weakness (2) CKD (chronic kidney disease) stage 4, GFR 15-29 ml/min ICD Code: N18.4 - Chronic kidney disease, stage 4 (severe) (3) UTI (urinary tract infection) ICD Code: N39.0 - Urinary tract infection, site not specified Status: Acute Procedures None Brief History - From Admission Ms. Cadena is a pleasant 81-year-old female with a history of coronary artery disease, dementia who presents to the emergency department today due to generalized weakness. At the time of this interview patient is in the room by herself and her has gone home. Difficult to obtain proper history. However chart review indicates that patient has been experiencing generalized weakness with decreased oral intake over the past one week. She did not have any nausea, vomiting, diarrhea, abdominal pain or fever. Patient denies any chest pain or shortness of breath. She denies any changes in bowel or bladder habits. On arrival temperature 97.4F, pulse 62 respirations 14 blood pressure 88/52, pulse oximetry 97% on room air. Blood pressure subsequently improved to 105/52. CBC largely unremarkable except for hemoglobin 9.3 and hematocrit 28.1. Chemistry panel shows sodium 140 potassium 4.3 creatinine 1.80 GFR 27. Urinalysis shows nitrite positive, large leukocyte esterase, innumerable WBCs. CBC/BMP: 05/27/17 0745 05/28/17 0545 Significant Findings Laboratory Tests Test 05/26/17 13:40 05/26/17 14:25 05/27/17 07:45 05/28/17 05:45 Red Blood Count 3.03 MIL/MM3 (4.00-5.30) 3.24 MIL/MM3 (4.00-5.30) Hemoglobin 9.3 GM/DL (11.6-15.3) 9.4 GM/DL (11.6-15.3) Hematocrit 28.1 % (35.0-46.0) 30.4 % (35.0-46.0) Monocytes (%) (Auto) 9.6 % (0.0-8.0) 10.5 % (0.0-8.0) Eosinophils (%) (Auto) 4.4 % (0.0-4.0) 5.3 % (0.0-4.0) Activated Partial Thromboplast Time 21.5 SEC (24.3-30.1) Blood Urea Nitrogen 30 MG/DL (7-18) 22 MG/DL (7-18) Creatinine 1.80 MG/DL (0.50-1.00) 1.30 MG/DL (0.50-1.00) 1.30 MG/DL (0.50-1.00) Albumin 3.1 GM/DL (3.4-5.0) Calcium Level 8.2 MG/DL (8.5-10.1) 8.4 MG/DL (8.5-10.1) Chloride Level 109 MEQ/L (98-107) 111 MEQ/L (98-107) Estimat Glomerular Filtration Rate 27 ML/MIN (>89) 39 ML/MIN (>89) 39 ML/MIN (>89) Troponin I LESS THAN 0.02 NG/ML Urine Turbidity MOD (CLEAR) Urine Protein 30 mg/dL (NEG-TRACE) Urine Ketones TRACE mg/dL (NEG) Urine Occult Blood MOD (NEG) Urine Nitrite POS (NEG) Urine Leukocyte Esterase LARGE (NEG) Urine RBC 15-19 /hpf (0-3) Urine WBC INNUM /hpf (0-5) Urine WBC Clumps MANY (NONE) Urine Bacteria MANY /hpf (NONE) Mean Corpuscular Hemoglobin Concent 31.0 % (32.0-36.0) Hospital Course 81-year-old female who originally presented to hospital on 05/26/17 because of generalized weakness. The patient does have dementia and most information was taken from the during her hospitalization. Patient came to emergency department and found to have findings of severe debility, weakness, acute renal failure superimposed on chronic kidney disease, urinary tract infection, change in mentation. Patient was admitted the hospital started on IV fluids in which her renal function did improve. She is started on antibiotics to include Rocephin. Urine culture was done and does indicate Escherichia coli which is sensitive to Rocephin. Patient had physical therapy evaluation in which she can only walk 3 feet with walker. I discussed with the at bedside. States that she is too weak at this time and he is agreeable to her going to a rehabilitation facility until she does get stronger. Patient is clinically improving slowly. Cultures are back we'll start patient on appropriate antibiotics per culture sensitivities. Will discharge patient to rehabilitation facility until patient is strong enough to return home. Will plan discharge accordingly once arrangements made by case management. Pt Condition on Discharge: Stable Discharge Disposition: Discharge to SNF Discharge Time: > 30 minutes Discharge Instructions DIET: Follow Instructions for: Heart Healthy Diet Activities you can perform: Regular-No Restrictions Follow up Referrals: PCP Follow-up - 1 Week New Medications: Ciprofloxacin (Cipro) 500 Mg Tab 500 MG PO BID for Infection for 7 Days, TAB 0 Refills Amlodipine (Norvasc) 5 Mg Tab 5 MG PO DAILY for Blood Pressure Management, #31 TAB Metoprolol Tartrate (Metoprolol Tartrate) 25 Mg Tab 25 MG PO Q12HR for Blood Pressure Management, #62 TAB Continued Medications: Aspirin DR (Aspir-81) 81 Mg Tabdr Atorvastatin (Atorvastatin) 20 Mg Tab 20 MG PO HS for Cholesterol Management, #30 TAB 0 Refills Brimonidine-Timolol Opth Drops (Combigan Opth Drops) 0.2-0.5% Soln 1 DROP EACH EYE Q12HR for Glaucoma, BOTTLE 0 Refills Clopidogrel (Clopidogrel) 75 Mg Tab 75 MG PO DAILY for Blood Clot Prevention, #30 TAB 0 Refills Ferrous Fumarate (Ferrous Fumarate) 324 Mg Tab 65 MG PO DAILY for Nutritional Supplement, #30 TAB 0 Refills Lansoprazole (Lansoprazole) 30 Mg Capdr 30 MG PO DAILY, CAP 0 Refills Levothyroxine (Synthroid) 100 Mcg Tab 100 MCG PO DAILY for Thyroid, #30 TAB 0 Refills Memantine (Namenda) 10 Mg Tab 10 MG PO DAILY for Alzheimer Disease, #30 TAB 0 Refills Multiple Vitamin (Multiple Vitamin) 1 Tab 1 TAB PO DAILY for Nutritional Supplement, TAB 0 Refills [place]-3 Fatty Acids (Fish Oil) 1,000 Mg Cap Valsartan (Valsartan) 80 Mg Tab 80 MG PO DAILY, #30 TAB 0 Refills Discontinued Medications: Metoprolol Tartrate (Metoprolol Tartrate) 75 Mg Tab 80 MG PO BID, #60 TAB 0 Refills Banegas,Anish J. PA May 28, 2017 12:01
[2017-05-28 16:00] VITALS: BP 165/72; PULSE 74; RESP 22; TEMP 98.2; O2SAT 95
[2017-05-28] MEDS: ACETAMINOPHEN 325 MG TAB PO PRN ×2 (16:44→20:08)
[2017-05-28 20:00] VITALS: BP 160/90; PULSE 85; RESP 18; TEMP 97.6; O2SAT 97
[2017-05-28] MEDS: ATORVASTATIN 20 MG TAB PO SCH (20:09)
[2017-05-29 04:00] VITALS: BP 138/84; PULSE 69; RESP 14; O2SAT 96
[2017-05-29] MEDS: SODIUM CHLOR 0.9% 1000 ML INJ 1,000 ML IV SCH (05:48)
[2017-05-29] MEDS: LEVOTHYROXINE SODIUM 100 MCG TAB PO SCH (05:48)
[2017-05-29 08:00] VITALS: BP 181/78; PULSE 67; RESP 16; TEMP 95.9; O2SAT 97
[2017-05-29] MEDS: cefTRIAXone INJ 1,000 MG in SODIUM CHLORIDE 0.9% INJ 100 ML IV SCH (08:37)
[2017-05-29] MEDS: BRIMONIDINE TARTRATE 0.2% OPHT SOLN 5 ML BTL EACH EYE SCH (08:38)
[2017-05-29] MEDS: TIMOLOL MALEATE 0.5% OPHT SOLN 5 ML BTL EACH EYE SCH (08:38)
[2017-05-29] MEDS: PANTOPRAZOLE SOD 40 MG DELAYED RELEASE TAB PO SCH (08:39)
[2017-05-29] MEDS: DOCUSATE SODIUM 50 MG/SENNA 8.6 MG TAB PO SCH (08:39)
[2017-05-29] MEDS: FERROUS FUMARATE 325 MG TAB (106 MG ELEMENTAL IRON) PO SCH (08:39)
[2017-05-29] MEDS: MEMANTINE HCL 10 MG TAB PO SCH (08:39)
[2017-05-29] MEDS: amLODIPine BESYLATE 5 MG TAB PO SCH (08:39)
[2017-05-29] MEDS: METOPROLOL TARTRATE 25 MG TAB PO SCH (08:39)
[2017-05-29] MEDS: CLOPIDOGREL 75 MG TAB PO SCH (08:39)
[2017-05-29] MEDS: HEPARIN SODIUM - SQ 10,000 UNITS/ML VIAL SQ SCH (08:39)
[2017-05-29] MEDS: SODIUM CHLORIDE 0.9% FLUSH 10 ML FLUSH IV FLUSH SCH (09:00)
--- NOTE | 2017-05-29 09:05 | RADRPT ---
EXAM DATE/TIME: 05/29/2017 07:53 [facility] COMPARISON: No previous studies available for comparison. INDICATIONS : Increased lab values. MEDICAL HISTORY : Hypercholesterolemia. Hypertension. Thyroid disease. Cerebrovascular acciden t. Alzheimer's disease. coronary artery disease. hernia, hiatal. kidney disease, stage iv. arthr itis. SURGICAL HISTORY : CABG. Appendectomy. Cholecystectomy. Cataract extraction. Thyroid surgery, un specified. ENCOUNTER: Initial ACUITY: 1 day PAIN SCORE: 0/10 LOCATION: Bilateral flank MEASUREMENTS: RIGHT KIDNEY: 6.9 x 3.6 x 2.9 cm LEFT KIDNEY: 8.2 x 5.2 x 4.4 cm FINDINGS: RIGHT KIDNEY: The right kidney is small, somewhat echogenic without hydronephrosis. LEFT KIDNEY: Echogenic cortex without hydronephrosis. BLADDER: Within normal limits given the degree of distension. CONCLUSION: Small echogenic kidneys without hydronephrosis. Asa Gao MD FACR on May 29, 2017 at 9:03 Board Certified Radiologist. This report was verified electronically.
[2017-05-29] MEDS: ACETAMINOPHEN 325 MG TAB PO PRN (09:22)
--- NOTE | 2017-05-29 09:49 | HHI.PR ---
Subjective Remarks Patient seen and examined today for follow-up on urinary tract infection, weakness. Patient is lying in bed comfortable. Denies any new complaints. Patient is quite pleasant and answers questions appropriately. Patient was discharged yesterday however still awaiting insurance authorization Objective Vitals Vital Signs Date Time Temp Pulse Resp B/P (MAP) Pulse Ox O2 Delivery O2 Flow Rate FiO2 05/29/17 08:00 95.9 67 16 181/78 (112) 97 05/29/17 04:00 69 14 138/84 (102) 96 05/28/17 20:00 97.6 85 18 160/90 (113) 97 05/28/17 17:44 18 05/28/17 16:00 98.2 74 22 165/72 (103) 95 05/28/17 12:00 97.8 74 20 167/89 (115) 97 I/O 05/28/17 05/28/17 05/28/17 05/29/17 05/29/17 05/29/17 07:00 15:00 23:00 07:00 15:00 23:00 Intake Total 60 ml 975 ml 560 ml Balance 60 ml 975 ml 560 ml Intake Oral 60 ml 425 ml IV Total 550 ml 560 ml # Voids 2 4 # Bowel Movements 0 4 Result Diagram: 05/27/17 0745 05/28/17 0545 Objective Remarks GENERAL: Well-developed, cachectic, in no acute distress. alert and orientated to person HEENT: Head is normocephalic without any lesions or masses noted. Facial features are symmetric. Eyes: Extraocular muscles are intact. Conjunctivae were clear. NECK: Supple without any masses. Trachea midline no deviation. No JVD, CARDIAC: Regular rhythm, regular rate. S1/S2 are heard. 2 or 6 ejection murmur , no gallops or rubs. LUNGS: Clear to auscultation bilaterally. No wheeze, rhonchi or rales. No use of accessory muscles on inspiration or expiration. ABDOMEN: Soft, nontender. Nondistended. Bowel sounds heard in all 4 quadrants. No organomegaly or masses. Negative rebound, negative guarding EXTREMITIES: No edema, pulses are equal bilaterally. No cyanosis or clubbing NEUROLOGY: Mood and affect appear appropriate. Cranial nerves II through XII grossly intact. 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 Continue metoprolol valsartan 80 mg daily at home. Metoprolol 25 mg twice daily, dose decreased due to bradycardia- Norvasc 5 mg daily Hypothyroidism Home medications have been resumed DVT prevention Subcutaneous Lovenox Discharge Planning Patient has active discharge in place, awaiting insurance authorization Anish Banegas May 29, 2017 09:49
[2017-05-29 12:00] VITALS: BP 155/76; PULSE 64; RESP 18; TEMP 96.6; O2SAT 91
== END 2017-05-29 16:56 ==
LOC: PHED 12:57 → PHEDA 14:45 → PH3A 16:02
PROVIDERS: ADMIT Hospitalist; ATTEND Hospitalist
DX: N39.0 Urinary tract infection, site not specified (principal); B96.20 Unspecified Escherichia coli [E. coli] as the cause of diseases classified elsewhere; E86.0 Dehydration; R53.1 Weakness; N18.4 Chronic kidney disease, stage 4 (severe); I12.9 Hypertensive chronic kidney disease with stage 1 through stage 4 chronic kidney disease, or unspecified chronic kidney disease; K92.2 Gastrointestinal hemorrhage, unspecified; R06.02 Shortness of breath; I25.10 Atherosclerotic heart disease of native coronary artery without angina pectoris; E78.00 Pure hypercholesterolemia, unspecified; K21.9 Gastro-esophageal reflux disease without esophagitis; G30.9 Alzheimer's disease, unspecified; F02.80 Dementia in other diseases classified elsewhere, unspecified severity, without behavioral disturbance, psychotic disturbance, mood disturbance, and anxiety; K44.9 Diaphragmatic hernia without obstruction or gangrene; E07.9 Disorder of thyroid, unspecified; D64.9 Anemia, unspecified; Z86.73 Personal history of transient ischemic attack (TIA), and cerebral infarction without residual deficits
CPT/HCPCS: 76775; 80048; 80053; 81001; 82550; 83735; 84100; 84484; 85025; 85610; 85730; 86850; 86900; 86901; 87077; 87086; 87186; 93005; 96361; 96365; 96366; 96372; 97110; 97116; 97163; 97166; 97530; 99285; G0378; G8987; G8988; J0696; J1644; J7030; P9612

== ENCOUNTER 2017-11-17 10:35 | Observation (INO) | payer MEDICARE ==
[2017-11-17] VITALS (8 sets, daily range): BP systolic 100–168; BP diastolic 47–70; PULSE 50–77; RESP 16–20; TEMP 97–97.8; O2SAT 93–100
[~2017-11-17] VITALS: Ht 162.6 cm; Wt 48.5 kg
[~2017-11-17 10:35] MED LIST changes: +AMLO5 PO; +CIPR-9 PO; -METO-426 PO; +METO25TA3 PO
[2017-11-17] MEDS ORDERED: SODIUM CHLORIDE 0.9% FLUSH 10 ML FLUSH IVF PRN (11:15)
[2017-11-17] MEDS ORDERED: SODIUM CHLORID 0.9% 500 ML INJ 500 ML IV ONE (11:15)
--- NOTE | 2017-11-17 11:19 | PD ---
HPI Chief Complaint: GI Complaint Time Seen by Provider: 11:14 Travel History International Travel<30 days: No Contact w/Intl Traveler<30days: No Traveled to known affect area: No History of Present Illness HPI 82-year-old female patient with history of Alzheimer's dementia, presents to the ER today because her states that she has been having several days history of diarrhea and dark stools, and has been feeling more generally weak. They deny any vomiting, fevers, or any other complaints. Patient is demented, not giving me any further history. Modifying Factors: None Associated Signs & Symptoms: Several days of diarrhea, dark stools, general weakness Risk Factors: None PFSH Past Medical History Hx Anticoagulant Therapy: Yes Alzheimer's Disease: Yes Cancer: No Cardiovascular Problems: Yes (CABG x5) High Cholesterol: Yes Cerebrovascular Accident: Yes Coronary Artery Disease: Yes Diabetes: No Diminished Hearing: No Endocrine: No Gastrointestinal Disorders: Yes GERD: No Genitourinary: Yes Hepatitis: No Hiatal Hernia: Yes Hypertension: Yes Immune Disorder: No Musculoskeletal: Yes (ARTHRITIS) Neurologic: No Psychiatric: No Reproductive: No Respiratory: No Immunizations Current: Yes Thyroid Disease: Yes Ulcer: No Menopausal: Yes Past Surgical History Abdominal Surgery: Yes (APPENDECTOMY, GALLBLADDER REMOVED) AICD: No Appendectomy: Yes (AGE 8) Cardiac Surgery: Yes (OPEN HEART) Cholecystectomy: Yes Coronary Artery Bypass Graft: Yes (X5) Ear Surgery: No Endocrine Surgery: No Eye Surgery: Yes (CATARACTS REMOVED) Genitourinary Surgery: No Gynecologic Surgery: No Joint Replacement: No Oral Surgery: No Pacemaker: No Thoracic Surgery: Yes Other Surgery: Yes (THYROID) Social History Alcohol Use: No Tobacco Use: No Substance Use: No Allergies-Medications (Allergen,Severity, Reaction): Coded Allergies: No Known Allergies (Unverified Adverse Reaction, Unknown, 11/17/17) Reported Meds & Prescriptions Reported Meds & Active Scripts Active Metoprolol Tartrate 25 Mg Tab 25 Mg PO Q12HR Reported Dyrenium (Triamterene) 50 Mg Cap Unknown Dose PO BID Hydrochlorothiazide 25 Mg Tab 25 Mg PO DAILY Synthroid (Levothyroxine Sodium) 100 Mcg Tab 100 Mcg PO DAILY Ferrous Fumarate 324 Mg Tab 65 Mg PO DAILY Multiple Vitamin 1 Tab 1 Tab PO DAILY Namenda (Memantine) 10 Mg Tab 10 Mg PO DAILY Atorvastatin (Atorvastatin Calcium) 20 Mg Tab 20 Mg PO HS Aspir-81 (Aspirin) 81 Mg Tabdr Clopidogrel (Clopidogrel Bisulfate) 75 Mg Tab 75 Mg PO DAILY Lansoprazole 30 Mg Capdr 30 Mg PO DAILY Fish Oil ([place]-3 Fatty Acids) 1,000 Mg Cap Combigan Opth Drops (Brimonidine-Timolol Opth Drops) 0.2-0.5% Soln 1 Drop EACH EYE Q12HR Review of Systems ROS Limitations: Altered Mental Status Physical Exam Narrative GENERAL: Well-developed elderly white female patient who is currently in mild distress. Awake, alert. SKIN: Focused skin assessment warm/dry. HEAD: Atraumatic. Normocephalic. EYES: Pupils equal and round. No scleral icterus. No injection or drainage. ENT: No nasal bleeding or discharge. Mucous membranes pink and moist. NECK: Trachea midline. No JVD. CARDIOVASCULAR: Regular rate and rhythm. No murmur appreciated. RESPIRATORY: No accessory muscle use. Clear to auscultation. Breath sounds equal bilaterally. GASTROINTESTINAL: Abdomen soft, non-tender, nondistended. Hepatic and splenic margins not palpable. RECTAL EXAM: No masses or tenderness, stool is greenish, Hemoccult negative.. MUSCULOSKELETAL: No obvious deformities. No clubbing. No cyanosis. No edema. NEUROLOGICAL: Awake and alert. No obvious cranial nerve deficits. Motor grossly within normal limits. Normal speech. PSYCHIATRIC: Appropriate mood and affect; insight and judgment normal. Data Data Last Documented VS Vital Signs Date Time Temp Pulse Resp B/P (MAP) Pulse Ox O2 Delivery O2 Flow Rate FiO2 11/17/17 11:05 95 11/17/17 10:47 97.8 77 18 110/53 (72) Orders Orders Complete Blood Count With Diff (11/17/17 11:04) Comprehensive Metabolic Panel (11/17/17 11:04) Lipase (11/17/17 11:04) Prothrombin Time / Inr (Pt) (11/17/17 11:04) Act Partial Throm Time (Ptt) (11/17/17 11:04) Type And Screen (11/17/17 11:04) Ecg Monitoring (11/17/17 11:04) Iv Access Insert/Monitor (11/17/17 11:04) Oximetry (11/17/17 11:04) Sodium Chloride 0.9% Flush (Ns Flush) (11/17/17 11:15) Sodium Chlorid 0.9% 500 Ml Inj (Ns 500 M (11/17/17 11:15) Labs Laboratory Tests Test 11/17/17 11:15 White Blood Count 8.2 TH/MM3 Red Blood Count 3.90 MIL/MM3 Hemoglobin 11.7 GM/DL Hematocrit 36.0 % Mean Corpuscular Volume 92.5 FL Mean Corpuscular Hemoglobin 30.1 PG Mean Corpuscular Hemoglobin Concent 32.6 % Red Cell Distribution Width 13.5 % Platelet Count 195 TH/MM3 Mean Platelet Volume 7.9 FL Neutrophils (%) (Auto) 52.6 % Lymphocytes (%) (Auto) 35.5 % Monocytes (%) (Auto) 9.7 % Eosinophils (%) (Auto) 0.7 % Basophils (%) (Auto) 1.5 % Neutrophils # (Auto) 4.3 TH/MM3 Lymphocytes # (Auto) 2.9 TH/MM3 Monocytes # (Auto) 0.8 TH/MM3 Eosinophils # (Auto) 0.1 TH/MM3 Basophils # (Auto) 0.1 TH/MM3 CBC Comment DIFF FINAL Differential Comment Prothrombin Time 10.3 SEC Prothromb Time International Ratio 1.0 RATIO Activated Partial Thromboplast Time 18.7 SEC Blood Urea Nitrogen 48 MG/DL Creatinine 2.90 MG/DL Random Glucose 129 MG/DL Total Protein 8.7 GM/DL Albumin 3.5 GM/DL Calcium Level 8.8 MG/DL Alkaline Phosphatase 43 U/L Aspartate Amino Transf (AST/SGOT) 38 U/L Alanine Aminotransferase (ALT/SGPT) 19 U/L Total Bilirubin 0.2 MG/DL Sodium Level 139 MEQ/L Potassium Level 3.6 MEQ/L Chloride Level 107 MEQ/L Carbon Dioxide Level 22.9 MEQ/L Anion Gap 9 MEQ/L Estimat Glomerular Filtration Rate 15 ML/MIN Lipase 270 U/L MDM Medical Decision Making Medical Screen Exam Complete: Yes Emergency Medical Condition: Yes Medical Record Reviewed: Yes Interpretation(s) Laboratory Tests Test 11/17/17 11:15 Red Blood Count 3.90 MIL/MM3 (4.00-5.30) Monocytes (%) (Auto) 9.7 % (0.0-8.0) Activated Partial Thromboplast Time 18.7 SEC (24.3-30.1) Blood Urea Nitrogen 48 MG/DL (7-18) Creatinine 2.90 MG/DL (0.50-1.00) Random Glucose 129 MG/DL (74-106) Total Protein 8.7 GM/DL (6.4-8.2) Alkaline Phosphatase 43 U/L (45-117) Aspartate Amino Transf (AST/SGOT) 38 U/L (15-37) Estimat Glomerular Filtration Rate 15 ML/MIN (>89) Differential Diagnosis Dehydration versus gastroenteritis versus GI bleed versus metabolic issues Narrative Course Lab work shows significant UN and creatinine elevation concerning for dehydration. IV fluids were given in the ER. Her Hemoccult was negative. At this point, my plan would be to admit her for further treatment. Case is discussed with Dr. Osorio for admission. HemaPrompt Point of Care Internal Pos. & Neg. Controls: Passed Fecal Specimen Occult Blood: Negative Diagnosis Primary Impression: Severe dehydration Admitting Information Admitting Physician Requests: Admit Nany To MD Nov 17, 2017 11:19
[2017-11-17] MEDS ORDERED: TRIA1CAP6 PO (11:22)
[2017-11-17] MEDS ORDERED: HYDR25TA5 PO (11:22)
[2017-11-17 11:25] LABS: AUTOMATED NEUTROPHIL # 4.3 TH/MM3 (1.8-7.7); BASOPHIL # 0.1 TH/MM3 (0-0.2); BASOPHIL % 1.5 % (0.0-2.0); EOSINOPHIL # 0.1 TH/MM3 (0-0.4); EOSINOPHIL % 0.7 % (0.0-4.0); HEMOGLOBIN 11.7 GM/DL (11.6-15.3); LYMPH % 35.5 % (9.0-44.0); LYMPHOCYTE # 2.9 TH/MM3 (1.0-4.8); MEAN CELL VOLUME 92.5 FL (80.0-100.0); MEAN CORPUSCULAR HEMOGLOBIN 30.1 PG (27.0-34.0); MEAN CORPUSCULAR HGB CONC 32.6 % (32.0-36.0); MEAN PLATELET VOLUME 7.9 FL (7.0-11.0); MONO % 9.7 % (0.0-8.0); MONOCYTE # 0.8 TH/MM3 (0-0.9); NEUT % 52.6 % (16.0-70.0); PLATELET COUNT 195 TH/MM3 (150-450); RED CELL DISTRIBUTION WIDTH 13.5 % (11.6-17.2); WHITE BLOOD COUNT 8.2 TH/MM3 (4.0-11.0)
[2017-11-17 11:37] LABS: CHLORIDE 107 MEQ/L (98-107); SODIUM (NA) 139 MEQ/L (136-145)
[2017-11-17 11:40] LABS: ALBUMIN 3.5 GM/DL (3.4-5.0); CALCIUM 8.8 MG/DL (8.5-10.1); GLUCOSE,RANDOM 129 MG/DL (74-106)
[2017-11-17 11:41] LABS: BICARBONATE 22.9 MEQ/L (21.0-32.0); BLOOD UREA NITROGEN 48 MG/DL (7-18)
[2017-11-17 11:44] LABS: ALT (GPT) 19 U/L (10-53); AST (GOT) 38 U/L (15-37); GLOMERULAR FILTRATION RATE 15 ML/MIN (>89)
[2017-11-17 11:45] LABS: TOTAL BILIRUBIN ADULT 0.2 MG/DL (0.2-1.0)
[2017-11-17 11:46] LABS: TOTAL PROTEIN 8.7 GM/DL (6.4-8.2)
[2017-11-17 11:47] LABS: ALKALINE PHOSPHATASE 43 U/L (45-117)
[2017-11-17 11:48] LABS: PROTHROMBIN TIME - PATIENT 10.3 SEC (9.8-11.6)
[2017-11-17] MEDS ORDERED: MAGNESIUM HYDROXIDE SUSP 30 ML CUP PO PRN (13:45)
[2017-11-17] MEDS ORDERED: BISACODYL 10 MG SUPP RECTAL PRN (13:45)
[2017-11-17] MEDS ORDERED: SENNOSIDES 8.6 MG TAB PO PRN (13:45)
[2017-11-17] MEDS ORDERED: NALOXONE HCL 0.4 MG/ML AMP IV PUSH PRN (13:45)
[2017-11-17] MEDS ORDERED: SODIUM CHLORIDE 0.9% FLUSH 10 ML FLUSH IV FLUSH PRN (13:45)
[2017-11-17] MEDS ORDERED: ACETAMINOPHEN 325 MG TAB PO PRN (13:45)
[2017-11-17] MEDS ORDERED: ONDANSETRON HCL 4 MG/2 ML VIAL IVP PRN (13:45)
--- NOTE | 2017-11-17 14:08 | HHI.HP ---
HPI Service [facility] Primary Care Physician Sami Bolivar MD Admission Diagnosis Severe dehydration/diarrhea Diagnoses: (1) Diarrhea Diagnosis: Principal (2) Severe dehydration Diagnosis: Secondary Chief Complaint: Diarrhea Travel History International Travel<30 Days: No Contact w/Intl Traveler <30 Da: No Traveled to Known Affected Are: No History of Present Illness This is an 82-year-old female patient with a known medical history of Alzheimer' s, CAD and hypertension who presented to the ED with several days of diarrhea and dark stools. Patient seen and examined at bedside, pleasantly confused, poor historian, all history obtained from medical records. is not at bedside at the time, attempted to call with no answer. Will continue to try to get in touch with for a better history and physical and recent occurrences. Per records, patient has had supposedly several days of diarrhea and dark stools with increasing weakness. There are no reports of any vomiting , fever, chills. On arrival patient's temperature was 97.8. Pulse 77, respirations 18, blood pressure 110/53, pulse oximetry 95% on room air. CBC unremarkable. BMP reviewed showing creatinine 2.9, sodium 139, potassium 3.6. PCP is Dr. Bolivar. Review of Systems Constitutional: COMPLAINS OF: Fatigue, DENIES: Fever, Chills Eyes: DENIES: Blurred vision Respiratory: DENIES: Cough, Sputum production Cardiovascular: DENIES: Chest pain Gastrointestinal: COMPLAINS OF: Black stools, Diarrhea, DENIES: Abdominal pain , Bloody stools, Constipation, Nausea, Vomiting Except as stated in HPI: all other systems reviewed are Neg Past Family Social History Past Medical History Hypertension CAD Dementia Iron deficiency anemia Hypothyroidism Past Surgical History CABG 5 appendectomy cholecystectomy Cataract surgery Reported Medications Active Metoprolol Tartrate 25 Mg Tab 25 Mg PO Q12HR Reported Dyrenium (Triamterene) 50 Mg Cap Unknown Dose PO BID Hydrochlorothiazide 25 Mg Tab 25 Mg PO DAILY Synthroid (Levothyroxine Sodium) 100 Mcg Tab 100 Mcg PO DAILY Ferrous Fumarate 324 Mg Tab 65 Mg PO DAILY Multiple Vitamin 1 Tab 1 Tab PO DAILY Namenda (Memantine) 10 Mg Tab 10 Mg PO DAILY Atorvastatin (Atorvastatin Calcium) 20 Mg Tab 20 Mg PO HS Aspir-81 (Aspirin) 81 Mg Tabdr Clopidogrel (Clopidogrel Bisulfate) 75 Mg Tab 75 Mg PO DAILY Lansoprazole 30 Mg Capdr 30 Mg PO DAILY Fish Oil ([place]-3 Fatty Acids) 1,000 Mg Cap Combigan Opth Drops (Brimonidine-Timolol Opth Drops) 0.2-0.5% Soln 1 Drop EACH EYE Q12HR Allergies: Coded Allergies: No Known Allergies (Unverified Adverse Reaction, Unknown, 11/17/17) Active Ordered Medications Current Medications Medications (Trade) Dose Ordered Sig/Nani Route Start Time Stop Time Status Last Admin Sodium Chloride 1,000 ml @ 75 mls/hr [id number] IV 11/17/17 13:45 UNV (NS Flush) 2 ml UNSCH PRN IV FLUSH 11/17/17 13:45 UNV (NS Flush) 2 ml BID IV FLUSH 11/17/17 21:00 UNV (Tylenol) 650 mg Q4H PRN PO 11/17/17 13:45 (Zofran Inj) 4 mg Q6H PRN IVP 11/17/17 13:45 UNV (Narcan Inj) 0.4 mg UNSCH PRN IV PUSH 11/17/17 13:45 UNV (Claudia-Colace) 1 tab BID PO 11/17/17 21:00 UNV (Milk Of Magnesia Liq) 30 ml Q12H PRN PO 11/17/17 13:45 UNV (Senokot) 17.2 mg Q12H PRN PO 11/17/17 13:45 UNV (Dulcolax Supp) 10 mg DAILY PRN RECTAL 11/17/17 13:45 Family History Family medical history could not be obtained due to patient's clinical condition Social History Denies any tobacco, alcohol or illicit drug use. Physical Exam Vital Signs Vital Signs Date Time Temp Pulse Resp B/P (MAP) Pulse Ox O2 Delivery O2 Flow Rate FiO2 11/17/17 13:17 11/17/17 12:25 50 20 100/47 (64) 95 11/17/17 11:05 95 11/17/17 10:47 97.8 77 18 110/53 (72) 95 Physical Exam GENERAL: Well-nourished, well-developed elderly female patient in NAD. Confused. SKIN: Warm and dry. No rash. Pale. HEAD: Normocephalic. Atraumatic. EYES: Pupils equal and round. No scleral icterus. No injection or drainage. ENT: No nasal bleeding or discharge. Mucous membranes pink and moist. NECK: Supple. Trachea midline. CARDIOVASCULAR: Regular rate and rhythm. S1, S2 noted. No murmur appreciated. RESPIRATORY: No accessory muscle use. Clear to auscultation. Breath sounds equal bilaterally. GASTROINTESTINAL: Abdomen soft, non-tender, nondistended. Normoactive bowel sounds x4. MUSCULOSKELETAL: No obvious deformities. Extremities without clubbing, cyanosis , or edema. NEUROLOGICAL: Awake and alert. No obvious cranial nerve deficits. Motor grossly within normal limits. 5/5 muscle strength in bilateral upper and lower extremities. Normal speech. Laboratory Laboratory Tests Test 11/17/17 11:15 White Blood Count 8.2 Red Blood Count 3.90 Hemoglobin 11.7 Hematocrit 36.0 Mean Corpuscular Volume 92.5 Mean Corpuscular Hemoglobin 30.1 Mean Corpuscular Hemoglobin Concent 32.6 Red Cell Distribution Width 13.5 Platelet Count 195 Mean Platelet Volume 7.9 Neutrophils (%) (Auto) 52.6 Lymphocytes (%) (Auto) 35.5 Monocytes (%) (Auto) 9.7 Eosinophils (%) (Auto) 0.7 Basophils (%) (Auto) 1.5 Neutrophils # (Auto) 4.3 Lymphocytes # (Auto) 2.9 Monocytes # (Auto) 0.8 Eosinophils # (Auto) 0.1 Basophils # (Auto) 0.1 CBC Comment DIFF FINAL Differential Comment Prothrombin Time 10.3 Prothromb Time International Ratio 1.0 Activated Partial Thromboplast Time 18.7 Blood Urea Nitrogen 48 Creatinine 2.90 Random Glucose 129 Total Protein 8.7 Albumin 3.5 Calcium Level 8.8 Alkaline Phosphatase 43 Aspartate Amino Transf (AST/SGOT) 38 Alanine Aminotransferase (ALT/SGPT) 19 Total Bilirubin 0.2 Sodium Level 139 Potassium Level 3.6 Chloride Level 107 Carbon Dioxide Level 22.9 Anion Gap 9 Estimat Glomerular Filtration Rate 15 Lipase 270 Result Diagram: 11/17/17 1115 11/17/17 1115 Septic Shock Reassessment Septic shock perfusion: reassessment completed Caprini VTE Risk Assessment Caprini VTE Risk Assessment: Mod/High Risk (score >= 2) Caprini Risk Assessment Model Point Value = 1 Point Value = 2 Point Value = 3 Point Value = 5 Age 41-60 Minor surgery BMI > 25 kg/m2 Swollen legs Varicose veins or History of unexplained or recurrent spontaneous Oral contraceptives or hormone replacement Sepsis (< 1 month) Serious lung disease, including pneumonia (< 1 month) Abnormal pulmonary function Acute myocardial infarction Congestive heart failure (< 1 month) History of inflammatory bowel disease Medical patient at bed rest Age 61-74 Arthroscopic surgery Major open surgery (> 45 min) Laparoscopic surgery (> 45 min) Malignancy Confined to bed (> 72 hours) Immobilizing plaster cast Central venous access Age >= 75 History of VTE Family history of VTE Factor V Leiden Prothrombin [id number] Lupus anticoagulant Anticardiolipin antibodies Elevated serum homocysteine Heparin-induced thrombocytopenia Other congenital or acquired thrombophilia Stroke (< 1 month) Elective arthroplasty Hip, pelvis, or leg fracture Acute spinal cord injury (< 1 month) Prophylaxis Regimen Total Risk Factor Score Risk Level Prophylaxis Regimen 0-1 Low Early ambulation 2 Moderate Order ONE of the following: *Sequential Compression Device (SCD) *Heparin 5000 units SQ BID 3-4 Higher Order ONE of the following medications: *Heparin 5000 units SQ TID *Enoxaparin/Lovenox 40 mg SQ daily (WT < 150 kg, CrCl > 30 mL/min) *Enoxaparin/Lovenox 30 mg SQ daily (WT < 150 kg, CrCl > 10-29 mL/min) *Enoxaparin/Lovenox 30 mg SQ BID (WT < 150 kg, CrCl > 30 mL/min) AND/OR *Sequential Compression Device (SCD) 5 or more Highest Order ONE of the following medications: *Heparin 5000 units SQ TID (Preferred with Epidurals) *Enoxaparin/Lovenox 40 mg SQ daily (WT < 150 kg, CrCl > 30 mL/min) *Enoxaparin/Lovenox 30 mg SQ daily (WT < 150 kg, CrCl > 10-29 mL/min) *Enoxaparin/Lovenox 30 mg SQ BID (WT < 150 kg, CrCl > 30 mL/min) AND *Sequential Compression Device (SCD) Assessment and Plan Assessment and Plan This is an 82-year-old female patient with a known medical history of Alzheimer' s, CAD and hypertension who presented to the ED with several days of diarrhea and dark stools. Severe dehydration with weakness suspect secondary to diarrhea, unknown cause rule out gastroenteritis versus C. difficile Acute on chronic kidney disease suspect secondary to above Stool studies ordered including C. difficile and Hemoccult. Continue to follow. Continue IV fluid. Encourage PO mouth intake. Monitor intake and output. PT eval ordered. Appreciate input and recommendations. Supplemental O2 as needed, patient is comfortable on room air. Hypertension, chronic: Will hold home medications, BP low. Continue to monitor. Will restart if stabilized. Alzheimer's dementia, chronic Supportive care. Monitor closely. Fall risk. Neuro checks. Moved closer to nursing station. Hypothyroidism: Continue home Levothyroxine. GERD: Continue home PPI. DVT prophylaxis: SCDs. Heparin. Nunu Chen Nov 17, 2017 14:08
[2017-11-17] MEDS: SODIUM CHLOR 0.45% 1000 ML INJ 1,000 ML IV SCH (14:40)
[2017-11-17] MEDS ORDERED: NON-FORMULARY DRUG (Brimonidine-Timolol Opth Drops (Combigan Opth Drops) 1 DROP) EACH EYE SCH (21:00)
[2017-11-17] MEDS: BRIMONIDINE TARTRATE 0.2% OPHT SOLN 5 ML BTL EACH EYE SCH (22:32)
[2017-11-17] MEDS: TIMOLOL MALEATE 0.5% OPHT SOLN 5 ML BTL EACH EYE SCH (22:32)
[2017-11-17] MEDS: DOCUSATE SODIUM 50 MG/SENNA 8.6 MG TAB PO SCH (22:32)
[2017-11-17] MEDS: SODIUM CHLORIDE 0.9% FLUSH 10 ML FLUSH IV FLUSH SCH (22:32)
[2017-11-17] MEDS: ATORVASTATIN 20 MG TAB PO SCH (22:32)
[2017-11-17] MEDS: HEPARIN SODIUM - SQ 10,000 UNITS/ML VIAL SQ SCH (22:33)
[2017-11-18] VITALS (9 sets, daily range): BP systolic 145–193; BP diastolic 71–104; PULSE 57–87; RESP 14–24; TEMP 96.7–98.4; O2SAT 85–97
[2017-11-18] MEDS: SODIUM CHLOR 0.45% 1000 ML INJ 1,000 ML IV SCH ×2 (01:33→17:54)
[2017-11-18 05:59] LABS: CALCIUM 8.3 MG/DL (8.5-10.1)
[2017-11-18 06:00] LABS: BICARBONATE 19.5 MEQ/L (21.0-32.0)
[2017-11-18 06:16] LABS: CREATININE 1.9 MG/DL (0.50-1.00)
[2017-11-18] MEDS: LEVOTHYROXINE SODIUM 100 MCG TAB PO SCH (07:02)
[2017-11-18] MEDS: SODIUM CHLORIDE 0.9% FLUSH 10 ML FLUSH IV FLUSH SCH ×2 (09:00→21:20)
[2017-11-18] MEDS: TIMOLOL MALEATE 0.5% OPHT SOLN 5 ML BTL EACH EYE SCH ×2 (09:28→21:20)
[2017-11-18] MEDS: BRIMONIDINE TARTRATE 0.2% OPHT SOLN 5 ML BTL EACH EYE SCH ×2 (09:28→21:20)
[2017-11-18] MEDS: CLOPIDOGREL 75 MG TAB PO SCH (09:29)
[2017-11-18] MEDS: MULTIVITAMIN TAB PO SCH (09:29)
[2017-11-18] MEDS: PANTOPRAZOLE SOD 40 MG DELAYED RELEASE TAB PO SCH (09:29)
[2017-11-18] MEDS: DOCUSATE SODIUM 50 MG/SENNA 8.6 MG TAB PO SCH ×2 (09:29→21:20)
[2017-11-18] MEDS: HEPARIN SODIUM - SQ 10,000 UNITS/ML VIAL SQ SCH ×2 (09:29→21:20)
[2017-11-18] MEDS: MEMANTINE HCL 10 MG TAB PO SCH (09:29)
[2017-11-18] MEDS: FERROUS FUMARATE 325 MG TAB (106 MG ELEMENTAL IRON) PO SCH (09:30)
--- NOTE | 2017-11-18 10:04 | HHI.PR ---
Subjective Remarks Follow-up severe dehydration and diarrhea. Patient seen and examined, lying in bed comfortably. is at bedside and updated. Patient is eating well, requires assistance. Denies any nausea or vomiting. Diarrhea has slowed up. Hemoccult positive. C. difficile negative. PT has seen patient. Objective Vitals Vital Signs Date Time Temp Pulse Resp B/P (MAP) Pulse Ox O2 Delivery O2 Flow Rate FiO2 11/18/17 09:27 66 18 181/80 (113) 11/18/17 04:00 98.2 58 16 178/75 (109) 94 11/18/17 00:00 98.1 57 18 169/71 (103) 85 11/17/17 21:32 100 21 11/17/17 20:00 58 11/17/17 20:00 97.0 60 16 168/70 (102) 93 11/17/17 17:39 95 21 11/17/17 16:00 97.3 60 18 138/70 (92) 94 11/17/17 14:00 97.3 53 16 143/64 (90) 94 11/17/17 13:17 11/17/17 12:25 50 20 100/47 (64) 95 11/17/17 11:05 95 11/17/17 10:47 97.8 77 18 110/53 (72) 95 I/O 11/17/17 11/17/17 11/17/17 11/18/17 11/18/17 11/18/17 07:00 15:00 23:00 07:00 15:00 23:00 Intake Total 1176 ml Output Total 200 ml Balance 976 ml Intake Oral 340 ml IV Total 836 ml Output Urine Total 200 ml # Bowel Movements 0 Result Diagram: 11/17/17 1115 11/18/17 0520 Objective Remarks GENERAL: Thin appearing elderly female patient in [facility]. SKIN: Warm and dry. No rash. HEAD: Normocephalic. Atraumatic. EYES: Pupils equal and round. No scleral icterus. No injection or drainage. ENT: No nasal bleeding or discharge. Mucous membranes pink and moist. NECK: Supple. Trachea midline. CARDIOVASCULAR: Regular rate and rhythm. S1, S2 noted. No murmur appreciated. RESPIRATORY: No accessory muscle use. Clear to auscultation. Breath sounds equal bilaterally. GASTROINTESTINAL: Abdomen soft, non-tender, nondistended. Normoactive bowel sounds x4. MUSCULOSKELETAL: No obvious deformities. Extremities without clubbing, cyanosis , or edema. NEUROLOGICAL: Awake and alert. No obvious cranial nerve deficits. Motor grossly within normal limits. 5/5 muscle strength in bilateral upper and lower extremities. Normal speech. PSYCHIATRIC: Appropriate mood and affect; insight and judgment normal. A/P Problem List: (1) Diarrhea ICD Code: R19.7 - Diarrhea, unspecified (2) Severe dehydration ICD Code: E86.0 - Dehydration Status: Acute Assessment and Plan This is an 82-year-old female patient with a known medical history of Alzheimer' s, CAD and hypertension who presented to the ED with several days of diarrhea and dark stools. Severe dehydration with weakness suspect secondary to diarrhea, unknown cause rule out gastroenteritis versus C. difficile Acute on chronic kidney disease suspect secondary to above Stool studies ordered including C. difficile which was negative and Hemoccult positive. Continue to follow stool studies. Continue IV fluid. Encourage PO mouth intake. Monitor intake and output. PT eval ordered. Appreciate input and recommendations. Supplemental O2 as needed, patient is comfortable on room air. Hemoccult-positive stool: Has been having dark black stool and diarrhea. Will consult GI, appreciate further recs. Trend H&H. Stable at this time. Hypertension, chronic: Blood pressure elevated today. Will continue home medications. Clonidine available as needed Alzheimer's dementia, chronic Supportive care. Monitor closely. Fall risk. Neuro checks. Moved closer to nursing station. Hypothyroidism: Continue home Levothyroxine. GERD: Continue home PPI. DVT prophylaxis: SCDs. Heparin. Nunu Chen Nov 18, 2017 10:04
--- NOTE | 2017-11-18 10:12 | HHI.FF ---
Face to Face Verification Diagnosis: (1) Severe dehydration (2) Diarrhea (3) Generalized weakness (4) Dementia Physical Therapy Order: Evaluate and Treat, Improve ambulation, Strength and gait training Home Health Nursing Order: Medical education Signs/symptoms of disease process Medication education-adverse effect I have seen patient Jenny aCdena on 11/18/17. My clinical findings support the need for the requested home health care services because: Deconditioned w/ increased weakness Limited ability to care for self I certify that my clinical findings support that this patient is homebound because: Unsteady gait/balance Nunu Chen Nov 18, 2017 10:12
[2017-11-18 12:15] LABS: AUTOMATED NEUTROPHIL # 4.9 TH/MM3 (1.8-7.7); BASOPHIL % 0.4 % (0.0-2.0); EOSINOPHIL # 0.1 TH/MM3 (0-0.4); EOSINOPHIL % 1.7 % (0.0-4.0); HEMATOCRIT 33.3 % (35.0-46.0); HEMOGLOBIN 11.1 GM/DL (11.6-15.3); LYMPH % 34.2 % (9.0-44.0); MEAN CELL VOLUME 90.9 FL (80.0-100.0); MEAN CORPUSCULAR HEMOGLOBIN 30.4 PG (27.0-34.0); MEAN CORPUSCULAR HGB CONC 33.4 % (32.0-36.0); MEAN PLATELET VOLUME 8.6 FL (7.0-11.0); MONO % 7.5 % (0.0-8.0); MONOCYTE # 0.7 TH/MM3 (0-0.9); NEUT % 56.2 % (16.0-70.0); PLATELET COUNT 210 TH/MM3 (150-450); RED BLOOD COUNT 3.66 MIL/MM3 (4.00-5.30); RED CELL DISTRIBUTION WIDTH 13.3 % (11.6-17.2); WHITE BLOOD COUNT 8.8 TH/MM3 (4.0-11.0)
[2017-11-18] MEDS: HYDROCHLOROTHIAZIDE 25 MG TAB PO SCH (12:52)
[2017-11-18] MEDS: cloNIDine HCL 0.1 MG TAB PO PRN (16:33)
--- NOTE | 2017-11-18 20:13 | PD.CONS ---
HPI History of Present Illness This is a 82 year old with advanced dementia was brought to the hospital with symptoms of dark colored loose stools several times a day. Stools were found to be heme positive in the ER. Admission hemoglobin was 11.7. There is no history of hematemesis or hematochezia. Patient was accompanied by her who gave the medical history. He denies any history of abdominal pain nausea vomiting constipation jaundice ascites edema anorexia or weight loss PFSH Past Medical History Hypertension CAD Dementia Iron deficiency anemia Hypothyroidism Past Surgical History CABG 5 appendectomy cholecystectomy Cataract surgery Coded Allergies: No Known Allergies (Unverified Adverse Reaction, Unknown, 11/17/17) Medications See MAR Family History Family medical history could not be obtained due to patient's clinical condition Social History Denies any tobacco, alcohol or illicit drug use. Review of Systems Gastrointestinal: COMPLAINS OF: Black stools, DENIES: Abdominal pain, Bloody stools, Constipation, Diarrhea, Nausea, Vomiting, Difficulty Swallowing, Anorexia, Odynophagia, Swelling of Abdomen, Heartburn, Hematemesis GI Exam Vitals I&O Vital Signs Date Time Temp Pulse Resp B/P (MAP) Pulse Ox O2 Delivery O2 Flow Rate FiO2 11/18/17 17:58 81 18 163/95 (117) 11/18/17 16:00 96.7 84 14 191/104 (133) 97 11/18/17 12:00 96.8 69 14 173/81 (111) 97 11/18/17 09:27 66 18 181/80 (113) 11/18/17 08:29 65 11/18/17 07:50 97.5 63 20 193/84 (120) 11/18/17 04:00 98.2 58 16 178/75 (109) 94 11/18/17 00:00 98.1 57 18 169/71 (103) 85 11/17/17 21:32 100 21 I/O 11/17/17 11/17/17 11/17/17 11/18/17 11/18/17 11/18/17 06:59 14:59 22:59 06:59 14:59 22:59 Intake Total 1176 ml 30 ml 985 ml Output Total 200 ml 200 ml Balance 976 ml 30 ml 785 ml Intake Oral 340 ml 30 ml 260 ml IV Total 836 ml 725 ml Output Urine Total 200 ml 200 ml # Voids 1 # Bowel Movements 0 1 0 Laboratory Test 11/18/17 05:20 11/18/17 11:08 Blood Urea Nitrogen 37 MG/DL Creatinine 1.90 MG/DL Random Glucose 82 MG/DL Calcium Level 8.3 MG/DL Sodium Level 138 MEQ/L Potassium Level 3.8 MEQ/L Chloride Level 110 MEQ/L Carbon Dioxide Level 19.5 MEQ/L Anion Gap 9 MEQ/L Estimat Glomerular Filtration Rate 25 ML/MIN White Blood Count 8.8 TH/MM3 Red Blood Count 3.66 MIL/MM3 Hemoglobin 11.1 GM/DL Hematocrit 33.3 % Mean Corpuscular Volume 90.9 FL Mean Corpuscular Hemoglobin 30.4 PG Mean Corpuscular Hemoglobin Concent 33.4 % Red Cell Distribution Width 13.3 % Platelet Count 210 TH/MM3 Mean Platelet Volume 8.6 FL Neutrophils (%) (Auto) 56.2 % Lymphocytes (%) (Auto) 34.2 % Monocytes (%) (Auto) 7.5 % Eosinophils (%) (Auto) 1.7 % Basophils (%) (Auto) 0.4 % Neutrophils # (Auto) 4.9 TH/MM3 Lymphocytes # (Auto) 3.0 TH/MM3 Monocytes # (Auto) 0.7 TH/MM3 Eosinophils # (Auto) 0.1 TH/MM3 Basophils # (Auto) 0.0 TH/MM3 CBC Comment DIFF FINAL Differential Comment Date/Time Source Procedure Growth Status 11/17/17 15:14 Stool Stool Stool Occult Blood (DEBORAH) - Final HEMOCCULT POSITIVE Complete Physical Examination HEENT: Pupils round and reactive to light; normocephalic; atraumatic; no jaundice. Throat is clear. Pallor present NECK: Neck is supple, no JVD, no lymphadenopathy. CHEST: Chest is clear to auscultation and percussion. CARDIAC: Regular rate and rhythm with no murmur gallop or rubs. ABDOMEN: Soft, nondistended, nontender; no hepatosplenomegaly; bowel sounds are present in all four quadrants. EXTREMITIES: No clubbing, cyanosis, or edema. SKIN: Normal; no rash; no jaundice. WILDERNESS GUIDE: Patient apparently has advanced dementia. No obvious focal neurological deficits Assessment and Plan Assessment: (1) GI bleeding ICD Codes: K92.2 - Gastrointestinal hemorrhage, unspecified (2) Anemia of other chronic disease ICD Codes: D63.8 - Anemia in other chronic diseases classified elsewhere (3) Diarrhea ICD Codes: R19.7 - Diarrhea, unspecified (4) Dementia ICD Codes: F03.90 - Unspecified dementia without behavioral disturbance Status: Acute (5) CKD (chronic kidney disease) stage 4, GFR 15-29 ml/min ICD Codes: N18.4 - Chronic kidney disease, stage 4 (severe) (6) UTI (urinary tract infection) ICD Codes: N39.0 - Urinary tract infection, site not specified Status: Acute Plan 1 Patient's anemia is likely from chronic underlying medical conditions 2. Remote possibility of occult GI bleeding. 3. Patient not a candidate for endoscopic evaluation in view of advanced dementia and other comorbid medical illness 4. Diarrhea, possibility of underlying infection needs further evaluation. Recommend stool studies 5. Monitor hemoglobin levels and continue supportive treatment. Yair Barber MD Nov 18, 2017 20:13
[2017-11-18] MEDS: ATORVASTATIN 20 MG TAB PO SCH (21:20)
[2017-11-19] VITALS (7 sets, daily range): BP systolic 119–166; BP diastolic 60–93; PULSE 82–103; RESP 18–24; TEMP 95.3–97.8; O2SAT 94–96
[2017-11-19] MEDS: LEVOTHYROXINE SODIUM 100 MCG TAB PO SCH (05:49)
[2017-11-19 07:02] LABS: CHLORIDE 103 MEQ/L (98-107); SODIUM (NA) 135 MEQ/L (136-145)
[2017-11-19 07:07] LABS: CALCIUM 8.4 MG/DL (8.5-10.1)
[2017-11-19 07:08] LABS: BICARBONATE 22.4 MEQ/L (21.0-32.0); GLUCOSE,RANDOM 92 MG/DL (74-106)
[2017-11-19 07:12] LABS: BLOOD UREA NITROGEN 26 MG/DL (7-18); GLOMERULAR FILTRATION RATE 36 ML/MIN (>89)
[2017-11-19] MEDS: DOCUSATE SODIUM 50 MG/SENNA 8.6 MG TAB PO SCH ×2 (09:00→19:57)
[2017-11-19] MEDS: SODIUM CHLORIDE 0.9% FLUSH 10 ML FLUSH IV FLUSH SCH ×2 (09:00→19:58)
[2017-11-19] MEDS: FERROUS FUMARATE 325 MG TAB (106 MG ELEMENTAL IRON) PO SCH (10:06)
[2017-11-19] MEDS: HYDROCHLOROTHIAZIDE 25 MG TAB PO SCH (10:06)
[2017-11-19] MEDS: CLOPIDOGREL 75 MG TAB PO SCH (10:07)
[2017-11-19] MEDS: MULTIVITAMIN TAB PO SCH (10:07)
[2017-11-19] MEDS: PANTOPRAZOLE SOD 40 MG DELAYED RELEASE TAB PO SCH (10:07)
[2017-11-19] MEDS: MEMANTINE HCL 10 MG TAB PO SCH (10:07)
[2017-11-19] MEDS: HEPARIN SODIUM - SQ 10,000 UNITS/ML VIAL SQ SCH ×2 (10:08→19:57)
[2017-11-19] MEDS: BRIMONIDINE TARTRATE 0.2% OPHT SOLN 5 ML BTL EACH EYE SCH ×2 (10:08→19:58)
[2017-11-19] MEDS: TIMOLOL MALEATE 0.5% OPHT SOLN 5 ML BTL EACH EYE SCH ×2 (10:08→19:58)
[2017-11-19 10:19] LABS: AUTOMATED NEUTROPHIL # 4.9 TH/MM3 (1.8-7.7); BASOPHIL % 0.5 % (0.0-2.0); EOSINOPHIL # 0.1 TH/MM3 (0-0.4); EOSINOPHIL % 0.6 % (0.0-4.0); HEMATOCRIT 38.5 % (35.0-46.0); HEMOGLOBIN 12.6 GM/DL (11.6-15.3); LYMPH % 32.8 % (9.0-44.0); LYMPHOCYTE # 2.8 TH/MM3 (1.0-4.8); MEAN CELL VOLUME 90.7 FL (80.0-100.0); MEAN CORPUSCULAR HEMOGLOBIN 29.8 PG (27.0-34.0); MEAN CORPUSCULAR HGB CONC 32.9 % (32.0-36.0); MEAN PLATELET VOLUME 7.9 FL (7.0-11.0); MONO % 9.6 % (0.0-8.0); MONOCYTE # 0.8 TH/MM3 (0-0.9); NEUT % 56.5 % (16.0-70.0); PLATELET COUNT 263 TH/MM3 (150-450); RED BLOOD COUNT 4.24 MIL/MM3 (4.00-5.30); RED CELL DISTRIBUTION WIDTH 13.1 % (11.6-17.2); WHITE BLOOD COUNT 8.6 TH/MM3 (4.0-11.0)
--- NOTE | 2017-11-19 10:43 | HHI.PR ---
Subjective Remarks Follow-up severe dehydration and diarrhea.. Patient seen and examined, sleeping , awakens to voice. Pleasantly confused. There are no reports of any further diarrhea greater than 24 hours now. Gastroenterology in to see patient, stool studies ordered, no sample to send specimen, no further recommendations. Hemoglobin stable today. Patient KASYE improved. Eating and drinking well, requires assistance. Objective Vitals Vital Signs Date Time Temp Pulse Resp B/P (MAP) Pulse Ox O2 Delivery O2 Flow Rate FiO2 11/19/17 08:00 95.9 82 18 166/93 (117) 95 11/19/17 04:00 97.3 87 20 135/78 (97) 94 11/19/17 00:00 96.8 90 24 165/71 (102) 95 11/18/17 20:00 98.4 87 24 145/87 (106) 96 11/18/17 20:00 58 11/18/17 17:58 81 18 163/95 (117) 11/18/17 16:00 96.7 84 14 191/104 (133) 97 11/18/17 12:00 96.8 69 14 173/81 (111) 97 I/O 11/18/17 11/18/17 11/18/17 11/19/17 11/19/17 11/19/17 06:59 14:59 22:59 06:59 14:59 22:59 Intake Total 1176 ml 30 ml 985 ml 40 ml Output Total 200 ml 200 ml Balance 976 ml 30 ml 785 ml 40 ml Intake Oral 340 ml 30 ml 260 ml 40 ml IV Total 836 ml 725 ml Output Urine Total 200 ml 200 ml # Voids 1 # Bowel Movements 0 1 0 Result Diagram: 11/19/17 0935 11/19/17 0935 Objective Remarks GENERAL: Thin appearing elderly female patient in NAD. SKIN: Warm and dry. No rash. HEAD: Normocephalic. Atraumatic. EYES: Pupils equal and round. No scleral icterus. No injection or drainage. ENT: No nasal bleeding or discharge. Mucous membranes pink and moist. NECK: Supple. Trachea midline. CARDIOVASCULAR: Regular rate and rhythm. S1, S2 noted. No murmur appreciated. RESPIRATORY: No accessory muscle use. Clear to auscultation. Breath sounds equal bilaterally. GASTROINTESTINAL: Abdomen soft, non-tender, nondistended. Normoactive bowel sounds x4. MUSCULOSKELETAL: No obvious deformities. Extremities without clubbing, cyanosis , or edema. NEUROLOGICAL: Awake and alert. No obvious cranial nerve deficits. Motor grossly within normal limits. 5/5 muscle strength in bilateral upper and lower extremities. Normal speech. PSYCHIATRIC: Appropriate mood and affect; insight and judgment normal. A/P Problem List: (1) Diarrhea ICD Code: R19.7 - Diarrhea, unspecified (2) Severe dehydration ICD Code: E86.0 - Dehydration Status: Acute Assessment and Plan This is an 82-year-old female patient with a known medical history of Alzheimer' s, CAD and hypertension who presented to the ED with several days of diarrhea and dark stools. Severe dehydration with weakness suspect secondary to diarrhea, unknown cause rule out gastroenteritis versus C. difficile Acute on chronic kidney disease suspect secondary to above. Improved. Stool studies ordered including C. difficile which was negative and Hemoccult positive. Stool studies negative. Gastroenterology has seen patient, further stool studies ordered, although no specimen, no further diarrhea. Has resolved. DC IV fluids. Patient tolerating p.o. intake, requires assistance with feedings. PT eval reviewed appreciate input and recommendations. Will go home with home health care. air. Hemoccult-positive stool: Has been having dark black stool and diarrhea. These have now resolved. H&H stable today. No further signs of bleeding or dark stools. On iron supplementation. Appreciate gastroenterology consult. Hypertension, chronic: Blood pressure stable. Continue home medications. DC IV fluids. Alzheimer's dementia, chronic Supportive care. Monitor closely. Fall risk. Neuro checks. Moved closer to nursing station. Hypothyroidism: Continue home Levothyroxine. GERD: Continue home PPI. DVT prophylaxis: SCDs. Heparin. Discharge Planning Case management assisting, spoke to who prefers patient to go to rehab. Discharge to rehab. Nunu Chen Nov 19, 2017 10:43
--- NOTE | 2017-11-19 12:17 | HHI.DCPOC ---
Discharge Care Plan Diagnosis: (1) Severe dehydration (2) Generalized weakness (3) Diarrhea Goals to Promote Your Health * To prevent worsening of your condition and complications * To maintain your health at the optimal level Directions to Meet Your Goals Take your medications as prescribed Follow your dietary instruction Follow activity as directed Keep your appointments as scheduled Take your immunizations and boosters as scheduled If your symptoms worsen call your PCP, if no PCP go to Urgent Care Center or Emergency Room Smoking is Dangerous to Your Health. Avoid second hand smoke Call the 24-hour hour crisis hotline for domestic abuse at Nunu Chen Nov 19, 2017 12:17
[2017-11-19] MEDS: cloNIDine HCL 0.1 MG TAB PO PRN (12:43)
[2017-11-19 13:54] LABS: % SATURATION IRON PROFILE 12.5 % (20-50); IRON (FE) 26 MCG/DL (50-170); TOTAL IRON BINDING CAPACITY 207 MCG/DL (250-450)
[2017-11-19 13:57] LABS: FERRITIN 837 NG/ML (8-252)
[2017-11-19] MEDS: ATORVASTATIN 20 MG TAB PO SCH (19:57)
[2017-11-20] VITALS: BP 147/84; PULSE 65; RESP 24; TEMP 95.9; O2SAT 98
[2017-11-20 05:00] VITALS: BP 175/81; PULSE 93; RESP 20; TEMP 97.1; O2SAT 96
[2017-11-20] MEDS: cloNIDine HCL 0.1 MG TAB PO PRN (05:49)
[2017-11-20] MEDS: LEVOTHYROXINE SODIUM 100 MCG TAB PO SCH (05:49)
[2017-11-20] MEDS: BRIMONIDINE TARTRATE 0.2% OPHT SOLN 5 ML BTL EACH EYE SCH (09:10)
[2017-11-20] MEDS: TIMOLOL MALEATE 0.5% OPHT SOLN 5 ML BTL EACH EYE SCH (09:10)
[2017-11-20] MEDS: MEMANTINE HCL 10 MG TAB PO SCH (09:11)
[2017-11-20] MEDS: SODIUM CHLORIDE 0.9% FLUSH 10 ML FLUSH IV FLUSH SCH (09:11)
[2017-11-20] MEDS: MULTIVITAMIN TAB PO SCH (09:11)
[2017-11-20] MEDS: DOCUSATE SODIUM 50 MG/SENNA 8.6 MG TAB PO SCH (09:12)
[2017-11-20] MEDS: HYDROCHLOROTHIAZIDE 25 MG TAB PO SCH (09:12)
[2017-11-20] MEDS: CLOPIDOGREL 75 MG TAB PO SCH (09:12)
[2017-11-20] MEDS: FERROUS FUMARATE 325 MG TAB (106 MG ELEMENTAL IRON) PO SCH (09:12)
[2017-11-20] MEDS: PANTOPRAZOLE SOD 40 MG DELAYED RELEASE TAB PO SCH (09:12)
[2017-11-20] MEDS: HEPARIN SODIUM - SQ 10,000 UNITS/ML VIAL SQ SCH (09:13)
[2017-11-20 09:30] VITALS: BP 106/59; PULSE 79; RESP 18; TEMP 96.7; O2SAT 94
--- NOTE | 2017-11-20 10:12 | HHI.PR ---
Subjective Remarks Follow-up severe dehydration. Patient seen and examined, lying in bed sleeping , awakens to voice. Patient is pleasantly confused, underlying Alzheimer's dementia. Denies any pain or acute complaints. No reports of any change overnight. Awaiting for authorization for placement to SNF. Vital signs are stable. Afebrile. Objective Vitals Vital Signs Date Time Temp Pulse Resp B/P (MAP) Pulse Ox O2 Delivery O2 Flow Rate FiO2 11/20/17 05:00 97.1 93 20 175/81 (112) 96 11/20/17 00:00 95.9 65 24 147/84 (105) 98 11/19/17 20:00 97.5 85 24 119/64 (82) 94 11/19/17 20:00 103 11/19/17 16:58 97.8 92 18 124/60 (81) 94 11/19/17 12:00 95.3 89 20 166/85 (112) 95 I/O 11/19/17 11/19/17 11/19/17 11/20/17 11/20/17 11/20/17 07:00 15:00 23:00 07:00 15:00 23:00 Intake Total 330 ml 200 ml 130 ml Output Total 200 ml 500 ml Balance 330 ml 0 ml -370 ml Intake Oral 80 ml 200 ml 120 ml IV Total 250 ml 10 ml Output Urine Total 200 ml 500 ml # Voids 4 # Bowel Movements 1 0 Result Diagram: 11/19/17 0935 11/19/17 0935 Objective Remarks GENERAL: Thin appearing elderly female patient in [facility]. SKIN: Warm and dry. No rash. HEAD: Normocephalic. Atraumatic. EYES: Pupils equal and round. No scleral icterus. No injection or drainage. ENT: No nasal bleeding or discharge. Mucous membranes pink and moist. NECK: Supple. Trachea midline. CARDIOVASCULAR: Regular rate and rhythm. S1, S2 noted. No murmur appreciated. RESPIRATORY: No accessory muscle use. Clear to auscultation. Breath sounds equal bilaterally. GASTROINTESTINAL: Abdomen soft, non-tender, nondistended. Normoactive bowel sounds x4. MUSCULOSKELETAL: No obvious deformities. Extremities without clubbing, cyanosis , or edema. NEUROLOGICAL: Awake and alert. No obvious cranial nerve deficits. Motor grossly within normal limits. 5/5 muscle strength in bilateral upper and lower extremities. Normal speech. PSYCHIATRIC: Appropriate mood and affect; insight and judgment normal. A/P Problem List: (1) Diarrhea ICD Code: R19.7 - Diarrhea, unspecified (2) Severe dehydration ICD Code: E86.0 - Dehydration Status: Acute Assessment and Plan This is an 82-year-old female patient with a known medical history of Alzheimer' s, CAD and hypertension who presented to the ED with several days of diarrhea and dark stools. Severe dehydration with weakness suspect secondary to diarrhea, unknown cause rule out gastroenteritis versus C. difficile Acute on chronic kidney disease suspect secondary to above. Improved. Stool studies ordered including C. difficile which was negative and Hemoccult positive. Stool studies negative. Gastroenterology has seen patient, further stool studies ordered, although no specimen, no further diarrhea. Has resolved. DC IV fluids. Patient tolerating p.o. intake, requires assistance with feedings. PT lisette reviewed appreciate input and recommendations. Discharge to SNF. Hemoccult-positive stool: Has been having dark black stool and diarrhea. These have now resolved. H&H stable today. No further signs of bleeding or dark stools. On iron supplementation. Appreciate gastroenterology consult. Hypertension, chronic: Blood pressure stable. Continue home medications. DC IV fluids. Alzheimer's dementia, chronic Supportive care. Monitor closely. Fall risk. Neuro checks. Moved closer to nursing station. Hypothyroidism: Continue home Levothyroxine. GERD: Continue home PPI. DVT prophylaxis: SCDs. Heparin. Discharge Planning Case management assisting, spoke to who prefers patient to go to rehab. Discharge to rehab. Nunu Chen Nov 20, 2017 10:12
[2017-11-20 12:00] VITALS: BP 99/55; PULSE 75; RESP 20; TEMP 97.2; O2SAT 94
[2017-11-20 16:00] VITALS: BP 137/60; PULSE 75; RESP 20; TEMP 96.5; O2SAT 95
== END 2017-11-20 17:20 ==
LOC: PHED 10:35 → PHEDA 12:23 → PH3A 13:03 → PH3B 14:09
PROVIDERS: ADMIT Hospitalist; ATTEND Hospitalist
DX: R19.7 Diarrhea, unspecified (principal); E86.0 Dehydration; K92.2 Gastrointestinal hemorrhage, unspecified; D63.8 Anemia in other chronic diseases classified elsewhere; N17.9 Acute kidney failure, unspecified; I25.10 Atherosclerotic heart disease of native coronary artery without angina pectoris; I10 Essential (primary) hypertension; E78.00 Pure hypercholesterolemia, unspecified; E03.9 Hypothyroidism, unspecified; K21.9 Gastro-esophageal reflux disease without esophagitis; G30.9 Alzheimer's disease, unspecified; F02.80 Dementia in other diseases classified elsewhere, unspecified severity, without behavioral disturbance, psychotic disturbance, mood disturbance, and anxiety; M19.90 Unspecified osteoarthritis, unspecified site; Z86.73 Personal history of transient ischemic attack (TIA), and cerebral infarction without residual deficits; Z95.1 Presence of aortocoronary bypass graft; Z79.899 Other long term (current) drug therapy; Z79.82 Long term (current) use of aspirin
CPT/HCPCS: 80048; 80053; 82272; 82728; 83540; 83550; 83690; 85025; 85610; 85730; 86850; 86900; 86901; 87015; 87102; 87328; 87329; 87425; 87493; 87506; 96360; 96361; 96372; 97110; 97162; 97530; 99285; G0378; G8987; G8988; J1644; J7040; 87116; 87206